=== PATIENT | male | born 1945 | race African-American/Black ===

== ENCOUNTER 2018-06-21 06:06 | Inpatient (IN) | payer MEDICARE ==
[2018-06-19 13:08] LABS: BASOPHILS % 0.5 % (0.0-1.0); EOSINOPHILS # (AUTO) 0.1 (0.0-0.4); EOSINOPHILS % 1.4 % (0.0-6.0); HEMATOCRIT 37.3 % (38.2-49.6); HEMOGLOBIN 12.2 g/dL (14.0-18.0); LYMPHOCYTES # (AUTO) 1.6 (1.0-3.2); LYMPHOCYTES % 28.5 % (18.0-39.1); MEAN CORPUSCULAR HEMOGLOBIN 28.4 pg (28-32); MEAN CORPUSCULAR HGB CONC 32.7 g/dL (31-35); MEAN CORPUSCULAR VOLUME 86.9 fL (81-99); MONOCYTES # (AUTO) 0.3 (0.2-0.8); MONOCYTES % 5.6 % (4.4-11.3); NEUTROPHILS # (AUTO) 3.6 (2.1-6.9); NEUTROPHILS % 63.6 % (38.7-80.0); PLATELET COUNT 203 x10e3/uL (140-360); RED BLOOD COUNT 4.29 x10e6/uL (4.3-5.7); RED CELL DISTRIBUTION WIDTH 12.2 % (11.7-14.4)
--- NOTE | 2018-06-19 13:09 | Diagnostic Imaging Report ---
EXAMINATION: PA and lateral views of the chest. COMPARISON: None CLINICAL HISTORY: Preoperative study, colon mass and ventral hernia DISCUSSION: Lines/tubes: None. Lungs: The lungs are well inflated and clear. There is no evidence of pneumonia or pulmonary edema. Pleura: There is no pleural effusion or pneumothorax. Heart and mediastinum: The cardiomediastinal silhouette is normal. Bones and soft tissues: No acute bony abnormalities. Degenerative changes in the thoracic spine IMPRESSION: No acute cardiopulmonary abnormalities. Signed by: Dr. Indio Ibarra M.D. on 06/19/2018 1:05 PM
[2018-06-19 13:15] LABS: ALANINE AMINOTRANSFERASE 25 IU/L (0-55); ALBUMIN 3.9 g/dL (3.5-5.0); ALBUMIN/GLOBULIN RATIO 1.1 (0.8-2.0); ALKALINE PHOSPHATASE 88 IU/L (40-150); ANION GAP 12.3 mmol/L (8-16); BLOOD UREA NITROGEN 14 mg/dL (7-26); BUN/CREATININE RATIO 13 (6-25); CALCIUM 9.3 mg/dL (8.4-10.2); CARBON DIOXIDE 26 mmol/L (22-29); CHLORIDE 96 mmol/L (98-107); CREATININE, SERUM 1.09 mg/dL (0.72-1.25); EST GLOMERULAR FILTRATION RATE > 60 ML/MIN (60-); GLUCOSE 67 mg/dL (74-118); POTASSIUM 4.3 mmol/L (3.5-5.1); SODIUM 130 mmol/L (136-145)
[~2018-06-21] VITALS: Ht 188 cm; Wt 96.2 kg
[~2018-06-21 06:06] MED LIST: ASPIR 8181 MG PO; ATORVASTATIN CA10 MG PO; BENICAR40 MG PO; DILTIAZEM 24HR120 M1 PO; FLOMAX0.4 MG PO; HYDROCHLOROTHIA25 MG PO; LEVOTHYROXINE112 MCG PO; METFORMIN HCL500 MG PO; METOPROLOL SUCC50 MG PO; NOVOLOG MI100 UNIT/1 SC; ULTRAM50 MG PO
--- OUTSIDE RECORDS SUMMARY | 2018-06-21 06:08 | XMS REPORT ---
Author Organization Unknown Address [address] [place] [id number] Phone [phone] Care Team Providers Care [employer]ished [employer]s Planner Name Role Phone CONNER CRAIN JR, MD 3 [phone] GIAN SORTO MD 111 [phone] Allergies Code Code System Name Reaction Severity Status Onset NKDA Medications Name Status Start Date Stop Date Alcohol Prep Pads Completed 05/09/2017 atorvastatin 10 mg tablet Active Not available BD Insulin Syringe Ultra-Fine 1 mL 30 gauge x 1/2" USE DIRECTED Completed 05/09/2017 BD Ultra-Fine Original Pen Needle 29 gauge x 1/2" Active Not available Blood Glucose Test strips 1 TEST STRIP TWICE DAILY Active Not available diltiazem CD 240 mg capsule,extended release 24 hr Take 1 capsule every day by oral route for 90 days. Completed 07/06/2017 diltiazem ER 240 mg capsule,24 hr,extended release TAKE ONE CAPSULE BY MOUTH EVERY DAY Active Not available FreeStyle Lancets 28 gauge Active Not available glucose 4 gram chewable tablet Take 1 tablet every day by oral route as needed. Active Not available Humalog U-100 Insulin 100 unit/mL subcutaneous solution Completed 01/18/2017 hydrochlorothiazide 25 mg tablet Active Not available lancets 30 gauge Take 1 each twice a day by miscell. route for 90 days. Active Not available lancing device Completed 01/18/2017 levothyroxine 125 mcg tablet Take 1 tablet every day by oral route before meals for 90 days. Active Not available losartan 100 mg tablet Completed 04/18/2017 meloxicam 15 mg tablet Completed 01/18/2017 meloxicam 7.5 mg tablet Completed 01/18/2017 metformin 500 mg tablet Take 1 tablet every day by oral route for 90 days. Active Not available metoprolol succinate ER 50 mg tablet,extended release 24 hr Take 0.5 tablets every day by oral route for 90 days. Active Not available Novolin N NPH U-100 Insulin isophane 100 unit/mL subcutaneous susp Completed 05/03/2017 Novolog Flexpen U-100 Insulin aspart 100 unit/mL subcutaneous Completed 04/18/2017 Novolog Mix 70-30 FlexPen U-100 Insulin 100 unit/mL subcutaneous pen Active Not available omeprazole 40 mg capsule,delayed release Completed 01/18/2017 OneTouch Ultra Control solution Completed 05/09/2017 Sure Comfort Insulin Syringe 1 mL 31 gauge x 5/16" Completed 05/03/2017 tamsulosin 0.4 mg capsule Take 1 capsule every day by oral route for 90 days. 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 01/17/2017 Age-related Nuclear Cataract of Left Eye Active 01/17/2017 Hypothyroidism Active 01/18/2017 Type II Diabetes Mellitus Uncontrolled Unknown 01/18/2017 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 Benign Hypertensive Renal Disease Active 01/18/2017 Chronic Kidney Disease Stage 3 Active 01/18/2017 Nocturia Active 01/18/2017 Chronic Kidney Disease Due to Type 2 Diabetes Mellitus Active 01/18/2017 Lower Urinary Tract Symptoms Due to Benign Prostatic Hypertrophy Active 01/18/2017 Hyperlipidemia Active 06/02/2017 Type 2 Diabetes Mellitus Active 07/06/2017 Procedures Date Name Performed by Intestinal Stricturoplasty Information not available 10/04/2016 US, Duplex, Venous, Lower Extremity [facility] [address] [place] [address] (Work [address]) 10/04/2016 XR, Knee, 3 View [facility] [address] [place] [id number] (Work Place) Lab Results Date Name Specimen Result Interpretation Description Value Range Status Address 05/03/2017 T3, Free, Serum or Plasma Low T3, Free 2.2 pg/mL 2.3-4.2 pg/mL Final [facility]: [address] 05/03/2017 Lipid Panel, Serum Normal Cholesterol, Total 197 mg/dL <200 mg/dL Final [facility]: [address] Normal HDL Cholesterol 63 mg/dL >40 mg/dL Final [facility]: [address] Normal Triglycerides 114 mg/dL <150 mg/dL Final [facility]: [address] [place] High LDL-cholesterol 112 mg/dL (calc) Final [facility]: [address] [place] Normal Chol/hdlc Ratio 3.1 (calc) <5.0 (calc) Final [facility]: [address] [place] High Non HDL Cholesterol 134 mg/dL (calc) <130 mg/dL (calc) Final [facility]: [address] 05/03/2017 CBC W/ Auto Diff Normal White Blood Cell Count 5.9 thousand/uL 3.8-10.8 thousand/uL Final [facility]: [address] [place] Normal Red Blood Cell Count 4.76 million/uL 4.20-5.80 million/uL Final [facility]: [address] [place] Normal Hemoglobin 13.6 g/dL 13.2-17.1 g/dL Final [facility]: [address] [place] Normal Hematocrit 40.8 % 38.5-50.0 % Final [facility]: [address] [place] Normal Mcv 85.7 fL 80.0-100.0 fL Final [facility]: [address] [place] Normal Mch 28.6 pg 27.0-33.0 pg Final [facility]: [address] [place] Normal Mchc 33.3 g/dL 32.0-36.0 g/dL Final [facility]: [address] [place] Normal Rdw 12.9 % 11.0-15.0 % Final [facility]: [address] [place] Normal Platelet Count 235 thousand/uL 140-400 thousand/uL Final [facility]: [address] [place] Normal Mpv 11.0 fL 7.5-12.5 fL Final [facility]: [address] [place] Normal Absolute Neutrophils 2673 cells/uL 5649-3120 cells/uL Final [facility] [address] [place] Absolute Band Neutrophils Preliminary [facility]: [address], Alex Absolute Metamyelocytes Preliminary [facility]: [address], Alex Absolute Myelocytes Preliminary [facility]: [address], Alex Absolute Promyelocytes Preliminary [facility]: [address], Alex Normal Absolute Lymphocytes 2637 cells/uL 850-3900 cells/uL Final [facility]: [address], Alex Normal Absolute Monocytes 419 cells/uL 200-950 cells/uL Final [facility]: [address], Alex Normal Absolute Eosinophils 142 cells/uL 15-500 cells/uL Final [facility]: [address], Alex Normal Absolute Basophils 30 cells/uL 0-200 cells/uL Final [facility]: [address], Alex Absolute Blasts Preliminary [facility]: [address], Alex Absolute Nucleated RBC Preliminary [facility]: [address], Alex Normal Neutrophils 45.3 % Final [facility]: [address], Alex Band Neutrophils Preliminary [facility]: [address], Alex Metamyelocytes Preliminary [facility]: [address], Alex Myelocytes Preliminary [facility]: [address], Alex Promyelocytes Preliminary [facility]: [address], Alex Normal Lymphocytes 44.7 % Final [facility]: [address], Alex Reactive Lymphocytes Preliminary [facility]: [address], Alex Normal Monocytes 7.1 % Final [facility]: [address], Alex Normal Eosinophils 2.4 % Final [facility]: [address], Alex Normal Basophils 0.5 % Final [facility]: [address], Alex Blasts Preliminary [facility]: [address], Alex Nucleated RBC Preliminary [facility]: [address], Alex Comment(s) Preliminary [facility]: [address], Alex 05/03/2017 TSH, Serum or Plasma Normal Tsh 0.63 mIU/L 0.40-4.50 mIU/L Final [facility]: [address] 05/03/2017 T4, Free, Serum Normal T4, Free 1.1 NG/dL 0.8-1.8 NG/dL Final [facility]: [address] 04/18/2017 Glucose, Fingerstick, Blood Blood Glucose: mg/dl [facility], [place] 01/18/2017 TSH, Serum or Plasma Normal Tsh 1.11 mIU/L 0.40-4.50 mIU/L Final [facility]: [address] 01/18/2017 CMP, Serum or Plasma High Glucose 110 mg/dL 65-99 mg/dL Final [facility]: [address] Normal Urea Nitrogen (BUN) 13 mg/dL 7-25 mg/dL Final [facility]: [address] High Creatinine 1.28 mg/dL 0.70-1.18 mg/dL Final [facility]: [address] Low eGFR Non-afr. Niuean 56 mL/min/1.73m2 > or=60 mL/min/1.73m2 Final [facility]: [address] Normal eGFR 65 mL/min/1.73m2 > or=60 mL/min/1.73m2 Final [facility]: [address] Normal BUN/creatinine Ratio 10 (calc) 6-22 (calc) Final [facility]: [address] Normal Sodium 136 mmol/L 135-146 mmol/L Final [facility]: [address] Normal Potassium 3.9 mmol/L 3.5-5.3 mmol/L Final [facility]: [address] Normal Chloride 99 mmol/L 98-110 mmol/L Final [facility]: [address] Normal Carbon Dioxide 29 mmol/L 20-31 mmol/L Final [facility]: [address] Normal Calcium 9.3 mg/dL 8.6-10.3 mg/dL Final [facility]: [address] Normal Protein, Total 7.2 g/dL 6.1-8.1 g/dL Final [facility]: [address] Normal Albumin 4.2 g/dL 3.6-5.1 g/dL Final [facility]: [address] Normal Globulin 3.0 g/dL (calc) 1.9-3.7 g/dL (calc) Final [facility]: [address] Normal Albumin/globulin Ratio 1.4 (calc) 1.0-2.5 (calc) Final [facility]: [address] Normal Bilirubin, Total 0.5 mg/dL 0.2-1.2 mg/dL Final [facility]: [facility] [address] High Alkaline Phosphatase 119 U/L 40-115 U/L Final [facility]: [facility] [address] Normal Ast 25 U/L 10-35 U/L Final [facility]: [address] Normal Alt 19 U/L 9-46 U/L Final [facility]: [address] 01/18/2017 Hepatitis C Virus RNA, Quant, PCR, Serum or Plasma Normal Hepatitis C Antibody non-reactive non-reactive Final [facility]: [facility] [address] Normal Signal to Cut-off 0.08 <1.00 Final [facility]: [facility] Divya nicolas [address] 01/06/2017 HbA1C (Hemoglobin a1C), Blood High Hemoglobin a1C 8.6 % of total HGB <5.7 % of total HGB Final [facility]: [address] EAG (mg/dL) 200 (calc) Final [facility]: [address] EAG (mmol/L) 11.1 (calc) Final [facility]: [facility] [address] 06/14/2016 LDL, Serum Ldl 109 Glucose, Fingerstick, Blood Blood Glucose: mg/dl 158 [facility]: 8951 [facility] 5, [place] Glucose, Fingerstick, Blood Blood Glucose: mg/dl 121 [facility]: [address] [place] [address], [place] Glucose, Fingerstick, Blood Blood Glucose: mg/dl 160 [facility]: [address] [place] [address], [place] Glucose, Fingerstick, Blood Blood Glucose: mg/dl 56 [facility]: [address] [place] [address], [place] Glucose, Fingerstick, Blood Blood Glucose: mg/dl 120 [facility]: [address] [place] [address], [place] Glucose, Fingerstick, Blood Blood Glucose: mg/dl 196 [facility]: [address] [place] [address], [place] Glucose, Fingerstick, Blood Blood Glucose: mg/dl 160 [facility]: [address] [place] [address], [place] Glucose, Fingerstick, Blood Blood Glucose: mg/dl 91 [facility]: [address] [place] [address], [place] Past Encounters 07/06/2017 Type 2 Diabetes Mellitus; Neck Pain; Benign Hypertensive Renal Disease Conner Crain Jr, MD: [address] [address], Ph. 05/09/2017 Type 2 Diabetes Mellitus with Multiple Complications; Benign Hypertensive Renal Disease; Mixed Hyperlipidemia; Type II Diabetes Mellitus Uncontrolled Conner Crain Jr, MD: [address] [address], Ph. 05/03/2017 Benign Hypertensive Renal Disease; Type II Diabetes Mellitus Uncontrolled; Hypothyroidism; Adult Health Examination; Advance Directive Discussed with Patient; Depression Screening; Body Mass Index 25-29 - Overweight; Overweight; Immunization Refused Conner Crain Jr, MD: [address] [address], Ph. 04/22/2017 Benign Hypertensive Renal Disease; Type II Diabetes Mellitus Uncontrolled; Immunization Refused Conner Crain Jr, MD: [address] [address], Ph. 04/18/2017 Type II Diabetes Mellitus Uncontrolled; Hypoglycemic State in Diabetes; Benign Hypertensive Renal Disease; Lower Urinary Tract Symptoms Due to Benign Prostatic Hypertrophy; Hypothyroidism; Depression Screening; Advance Directive Discussed with Patient; Body Mass Index 30+ - Obesity; Obesity Conner Crain Jr, MD: [address], [place] [address], Ph. 01/18/2017 Benign Hypertensive Renal Disease; Peripheral Edema; Peripheral Venous Insufficiency; Type 2 Diabetes Mellitus with Multiple Complications; Chronic Kidney Disease Due to Type 2 Diabetes Mellitus; Chronic Kidney Disease Stage 3; Hypothyroidism; Lower Urinary Tract Symptoms Due to Benign Prostatic Hypertrophy; Hepatitis C Screening; Immunization Conner Crain Jr, MD: [address], [place] [address], Ph. 12/14/2016 Immunization Conner Crain Jr, MD: [address], [place] [address], Ph. Social History Smoking Status Never Smoker Vaccine List Vaccine Type influenza, high dose seasonal 12/14/20160.5 mL pneumococcal conjugate PCV 13 01/18/20170.5 mL pneumococcal polysaccharide PPV23 01/03/20120.5 mL zoster 0.65 mL 0.65 mL Plan of Care Patient Instructions It was good to see you in the office today for your Medicare Annual Wellness Visit. You have been provided some information on healthy nutrition, including a diet rich in fruits and vegetables, minimizing simple carbohydrates, salt, and saturated fats. I want to encourage regular cardiovascular exercise such as walking at least 30 minutes daily, 5 times per week. Please remember to schedule any preventive health measures that we talked about today. You have also been provided education on fall prevention and community- based lifestyle interventions to help reduce health risks and promote healthy living in your [employer] folder. Screening Recommendations 1. Vaccines Pneumococcal: discussed today and information sent with patient in their [facility] health folder Influenza: discussed today and information sent with patient in their [facility] health folder Shingles: discussed today and information sent with patient in their [facility] health folder Tetanus: discussed today and information sent with patient in their [facility] health folder 2. Prostate Screening: discussed today and information sent with patient in their [facility] health folder 3. Colorectal cancer Screening Colonoscopy: discussed today and information sent with patient in their [facility] health folder Fecal Occult Blood: discussed today and information sent with patient in their [facility] health folder 4. Bone Mass Measurement: discussed today 5. Eye Exam Screening: discussed today 6. Cholesterol Screening: discussed today 7. Diabetes Screening: discussed today It was good to see you in the office today for your Medicare Annual Wellness Visit. You have been provided some information on healthy nutrition, including a diet rich in fruits and vegetables, minimizing simple carbohydrates, salt, and saturated fats. I want to encourage regular cardiovascular exercise such as walking at least 30 minutes daily, 5 times per week. Please remember to schedule any preventive health measures that we talked about today. You have also been provided education on fall prevention and community- based lifestyle interventions to help reduce health risks and promote healthy living in your [facility] folder. Screening Recommendations 1. Vaccines Pneumococcal: discussed today and information sent with patient in their [facility] health folder Influenza: discussed today and information sent with patient in their [facility] health folder Shingles: discussed today and information sent with patient in their [facility] health folder Tetanus: discussed today and information sent with patient in their [facility] health folder 2. Prostate Screening: discussed today and information sent with patient in their [facility] health folder 3. Colorectal cancer Screening Colonoscopy: discussed today and information sent with patient in their [facility] health folder Fecal Occult Blood: discussed today and information sent with patient in their [facility] health folder 4. Bone Mass Measurement: discussed today 5. Eye Exam Screening: discussed today 6. Cholesterol Screening: discussed today 7. Diabetes Screening: discussed today It was good to see you in the office today for your Medicare Annual Wellness Visit. You have been provided some information on healthy nutrition, including a diet rich in fruits and vegetables, minimizing simple carbohydrates, salt, and saturated fats. I want to encourage regular cardiovascular exercise such as walking at least 30 minutes daily, 5 times per week. Please remember to schedule any preventive health measures that we talked about today. You have also been provided education on fall prevention and community- based lifestyle interventions to help reduce health risks and promote healthy living in your [facility] folder. Screening Recommendations 1. Vaccines Pneumococcal: discussed today and information sent with patient in their [facility] health folder Influenza: discussed today and information sent with patient in their [facility] health folder Shingles: discussed today and information sent with patient in their [facility] health folder Tetanus: discussed today and information sent with patient in their [facility] health folder 2. Prostate Screening: discussed today and information sent with patient in their [facility] health folder 3. Colorectal cancer Screening Colonoscopy: discussed today and information sent with patient in their [facility] health folder Fecal Occult Blood: discussed today and information sent with patient in their [facility] health folder 4. Bone Mass Measurement: discussed today 5. Eye Exam Screening: discussed today 6. Cholesterol Screening: discussed today 7. Diabetes Screening: discussed today Reminders Provider Appointments None recorded. Lab None recorded. Referral None recorded. Procedures None recorded. Surgeries None recorded. Imaging None recorded. 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
--- OUTSIDE RECORDS SUMMARY | 2018-06-21 06:08 | XMS REPORT | Encounter Summary ---
Author Organization Unknown Address [address] [place] [address] Phone [phone] Care Team Providers Care Micromatic Hone Operator Name Role Phone Dr. Jonathan Jarquin 3 [phone] Jonathan Jarquin Jr, MD 3 [phone] Jose Robbins MD 111 [phone] Reason for Visit Quality BMI DEPRESSION FALL; AWV Annual Wellness Visit Male (VFP); hypertension; diabetes Instructions 1. Adult health examination 2. Body mass index 25-29 - overweight 3. Overweight 4. Advance directive discussed with patient 5. Depression screening 6. At risk for falls preventing falls: care instructions 7. Type 2 diabetes mellitus glucose, fingerstick, blood 8. Benign hypertensive renal disease 9. Chronic kidney disease stage 2 10. Screening for malignant neoplasm of colon colonoscopy referral 11. Immunization Shingrix Adjuvant Component (PF) intramuscular suspension Discussion Note: None recorded. Plan of Care Patient Instructions It was [...] risks and promote healthy living in your Annual Wellness folder. Screening Recommendations 1. Vaccines Pneumococcal: discussed today and information sent with patient in their Annual Wellness health folder Influenza: discussed today and information sent with patient in their Annual Wellness health folder Shingles: Ordered Tetanus: discussed today and information sent with patient in their Annual Wellness health folder 2. Prostate Screening: No screening necessary 3. Colorectal cancer Screening Colonoscopy: Ordered Fecal Occult Blood: discussed today and information sent with patient in their Annual Wellness health folder 4. Bone Mass Measurement: No screening necessary 5. Eye Exam Screening: discussed today 6. Cholesterol Screening: discussed today 7. Diabetes Screening: discussed today Reminders Provider Appointments Est Patient 07/06/2018 8:45AM Jonathan Jarquin Jr, MD Lab Glucose, Fingerstick, Blood 05/04/2018 [facility] ([facility]) Hobby Referral Colonoscopy Referral 05/04/2018 Procedures None recorded. Surgeries None recorded. Imaging None recorded. Medications Name Start Date atorvastatin 10 mg tablet TAKE 1 TABLET BY MOUTH EVERY DAY BD Ultra-Fine Mini Pen Needle 31 gauge x 3/16" USE TWICE A DAY OR DIRECTED. BD Ultra-Fine Original Pen Needle 29 gauge x 1/2" diltiazem CD 240 mg capsule,extended release 24 hr TAKE 1 CAPSULE BY MOUTH EVERY DAY Ecotrin Low Strength 81 mg tablet,enteric coated Take 1 tablet every day by oral route. hydrochlorothiazide 25 mg tablet Take 1 tablet every day by oral route. levothyroxine 125 mcg tablet Take 1 tablet every day by oral route. metformin 500 mg tablet TAKE 2 TABLETS BY MOUTH TWICE A DAY metoprolol succinate ER 50 mg tablet,extended release 24 hr Take 1 tablet every day by oral route for 90 days. mupirocin 2 % topical ointment APPLY A SMALL AMOUNT TO THE AFFECTED AREA BY TOPICAL ROUTE 3 TIMES PER DAY Novolog Mix 70-30 FlexPen U-100 Insulin 100 unit/mL subcutaneous pen INJECT 40 UNIT(S) TWICE A DAY BY SUBCUTANEOUS ROUTE. olmesartan 40 mg tablet TAKE 1 TABLET BY MOUTH EVERY DAY OneTouch Delica Lancets 30 gauge Take 1 each twice a day by miscell. route for 90 days. OneTouch Ultra Blue Test Strip 1 TEST STRIP TWICE DAILY tamsulosin 0.4 mg capsule TAKE 1 CAPSULE BY MOUTH EVERY DAY tramadol 50 mg tablet Medications Administered None recorded. Vitals Height Weight BMI Blood Pressure 6 ft 2 in 231 lbs 29.7 kg/m2 (1) 148/76 mm[Hg] (2) 136/64 mm[Hg] Lab Results Date Name Specimen Result Interpretation Description Value Range Status Address 04/06/2018 Microalbumin:creatinine Ratio, Urine Normal Microalbumin Random Urine see comment ug/mL Final [facility]: [address] [place] [address], [place] Normal Creatinine Random Urine 50.9 mg/dL 20.0-370.0 mg/dL Final [facility]: [address] [facility] [address], [place] Microalbumin/creatinine (Random Urine) Ratio Calculated unable to calculate mcg/mg creat Final [facility]: [address] [address], [place] 04/06/2018 HbA1C (Hemoglobin a1C), Blood High A1C W/eag 7.0 % 1.0-5.7 % Final [facility]: [address] [address], [place] Average Blood Glucose 154 mg/dL Final [facility]: [address] [address], [place] 04/06/2018 Glucose, Fingerstick, Blood Blood Glucose: mg/dl [address] [place] [address] (p) Hobby: [address] Allergies Code Code System Name Reaction Severity Status Onset NKDA Problems Name Status Onset Date Source 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 01/17/2017 Age-related Nuclear Cataract of Left Eye Active 01/17/2017 Hypothyroidism Active 01/18/2017 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 Benign Hypertensive Renal Disease Active 01/18/2017 Nocturia Active 01/18/2017 Chronic Kidney Disease Due to Type 2 Diabetes Mellitus Active 01/18/2017 Lower Urinary Tract Symptoms Due to Benign Prostatic Hypertrophy Active 01/18/2017 Hyperlipidemia Active 06/02/2017 Type 2 Diabetes Mellitus Active 07/06/2017 Diabetic Retinopathy Active 11/14/2017 Chronic Kidney Disease Stage 2 Active 04/06/2018 Procedures Date Name Performed by 08/22/2008 Colonoscopy Information not available Intestinal Stricturoplasty Information not available Vaccine List Vaccine Type influenza, high dose seasonal 12/14/20160.5 mL 01/05/20180.5 mL pneumococcal conjugate PCV 13 01/18/20170.5 mL pneumococcal polysaccharide PPV23 01/03/20120.5 mL zoster 0.65 mL 0.65 mL Social History Smoking Status Never Smoker Past Encounters 05/04/2018 Adult Health Examination; Body Mass Index 25-29 - Overweight; Overweight; Advance Directive Discussed with Patient; Depression Screening; At Risk for Falls; Type 2 Diabetes Mellitus; Benign Hypertensive Renal Disease; Chronic Kidney Disease Stage 2; Screening for Malignant Neoplasm of Colon; Immunization Jonathan Jarquin Jr, MD: [address], [facility] [address], [place] [address], Ph. 04/06/2018 Type 2 Diabetes Mellitus; Type II Diabetes Mellitus Uncontrolled; Noncompliance with Medication Regimen; Benign Hypertensive Renal Disease; Foot Callus; Onychomycosis of Toenails Jonathan Jarquin Jr, MD: [address] [facility], [address], [place] [address], Ph. History of Present Illness Diabetes F/U Reported By: Patient HPI: Labs: last A1C result: 8.3. Context: no side effects from medications. Associated Symptoms: no dizziness, no sweats, no headaches, no confusion, no increased thirst, no increased appetite, no increased urination, no blurred vision, no numbness of feet Notes: Endorses medication compliance.
Hypertension Reported By: Patient HPI: Severity: mild. Onset/Timing: gradual onset. Alleviating Factors: relieved with rest, medication. Self Care: not under emotional stress, blood pressure goal: 130/80. Associated Symptoms: no shortness of breath, no fatigue, no decline in exercise capacity Hyperlipidemia Reported By: Patient HPI: Type of hyperlipidemia: combined, hypercholesterolemia. Duration: chronic. Current Therapy: currently taking: atorvastatin, last LDL level: 63 date: 63. Compliance: compliant. Complications: no coronary artery disease. Risk Factors: diabetes, hypertension Thyroid Reported By: Patient Review of Systems Comprehensive General Adult ROS, Diabetes F/U ROS Reported By: Patient Constitutional: Constitutional: no significant weight gain, no significant weight loss Cardiovascular: Cardiovascular: no chest pain, no shortness of breath when walking Respiratory: Respiratory: no cough, no wheezing, no shortness of breath Endocrine: Endocrine: no fatigue Physical Exam General Adult Exam (male), Neurology Exam, Cardiology Exam, Diabetes, Diabetic Foot Exam Reported By: Patient Constitutional: General Appearance: well-nourished. Ambulation: ambulating normally Psychiatric: Mental Status: normal mood, normal affect, current events, past history. Orientation: to time, to place, to person. Memory: recent memory normal, remote memory normal Head: Head: normocephalic Mental Status: Language: has spontaneous speech Foot Exam:: Right Foot: right foot was examined, nail changes or disorders. Left Foot: left foot was examined, nail changes or disorders
--- OUTSIDE RECORDS SUMMARY | 2018-06-21 06:08 | XMS REPORT ---
Author Author [facility] Address Unknown Phone Unavailable Care Team Providers Care Sdc Teacher Name Role Phone Wellington FERMIN Unavailable Unavailable Problems This patient has no known problems. Allergies, Adverse Reactions, Alerts This patient has no known allergies or adverse reactions. Medications This patient has no known medications. Results Test Description Test Time Test Comments Text Results Atomic Results Result Comments CHEST 2 VIEWS 2018-06-19 13:04:00 [address] [place] [address] Patient Name: KAYLIN BARROSO MR #: [id number] : 1945 Age/Sex: 73/M Req #: [id number] Adm Physician: Ordered by: FAZAL FERMIN MD Report #: [id number] Location: OR Room/Bed: Procedure: [id number] DX/CHEST 2 VIEWS Exam Date: Exam Time: REPORT STATUS: Signed EXAMINATION: PA and lateral views of the chest. COMPARISON: None CLINICAL HISTORY: Preoperative study, colon mass and ventral hernia DISCUSSION: Lines/tubes: None. Lungs: The lungs are well inflated and clear. There is no evidence of pneumonia or pulmonary edema. Pleura: There is no pleural effusion or pneumothorax. Heart and mediastinum: The cardiomediastinal silhouette is normal. Bones and soft tissues: No acute bony abnormalities. Degenerative changes in the thoracic spine IMPRESSION: No acute cardiopulmonary abnormalities. Signed by: Dr. Ok Zavala M.D. on 06/19/2018 1:05 PM Dictated By: OK ZAVALA MD 1309 Transcribed By: TRINA on 06/19/18 1308 COPY TO: FAZAL FERMIN MD
--- NOTE | 2018-06-21 07:10 | NUR ---
SPIRITUAL CARE - Pre-Surgery Assessment: Pt in bed. Pt's and sister at bedside. Pt reported supportive attention from family and friends. Intervention: I provided pastoral presence, hospitality, and sympathetic listening. I acquainted pt with availability of color finisher while hospitalized. Outcome: Pt expressed appreciation for visit. No need for follow up indicated at this time. MILTON Qu[facility]olain Spiritual Care Department O: [phone] Pager: [phone] ([phone] number calling from)
[2018-06-21] MEDS ORDERED: ACETAMINOPHEN 1000 MG/100 ML IV PRN (11:30)
[2018-06-21] MEDS ORDERED: HYDROMORPHONE 1MG/1ML INJ IV PRN (11:30)
[2018-06-21] MEDS ORDERED: HYDROMORPHONE 2MG/ML 2 MG/ML ML ONE (11:47)
[2018-06-21] MEDS ORDERED: FENTANYL CITRATE/PF 100MCG/2 ML INJ ONE ×2 (12:05→14:54)
[2018-06-21] MEDS ORDERED: DEXAMETHASONE SOD PHOS INJ 4 MG/ML VIAL ONE (13:44)
[2018-06-21] MEDS ORDERED: CEFOXITIN SOD 1 GM VIAL ONE (13:44)
[2018-06-21] MEDS ORDERED: ONDANSETRON HCL INJ 2MG/ML 2ML 2 MG/ML VIAL ONE (13:44)
[2018-06-21] MEDS ORDERED: PROPOFOL IV EMULSION 10 MG/ML 20 ML VIAL ONE (13:44)
[2018-06-21] MEDS ORDERED: ROCURONIUM BROMIDE 10 MG/ML 5ML VIAL ONE (13:44)
[2018-06-21] MEDS ORDERED: NEOSTIGMINE 5 MG/5ML SYR ONE (13:44)
[2018-06-21] MEDS ORDERED: ACETAMINOPHEN 1000 MG/100 ML IV ONE (13:44)
[2018-06-21] MEDS ORDERED: SEVOFLURANE INHAL SOLN 250 ML PEN BTL ONE (13:44)
[2018-06-21] MEDS ORDERED: GLYCOPYRROLATE INJ 1MG/ 5 ML SYR ONE (13:44)
[2018-06-21] MEDS ORDERED: LIDOCAINE HCL 2% LOCAL INJ 5 ML SDV VIAL INJ ONE (13:44)
--- NOTE | 2018-06-21 13:54 | Operative Report ---
DATE OF PROCEDURE: 06/21/2018 SURGEON: Troy Hernandez MD PREOPERATIVE DIAGNOSES: Polypoid mass of the ascending colon, rule out malignancy and ventral hernia. POSTOPERATIVE DIAGNOSES: Polypoid mass of the ascending colon, rule out malignancy and ventral hernia. Extensive intraabdominal adhesions. OPERATIONS PERFORMED: Exploratory laparotomy, extensive lysis of adhesion, right hemicolectomy, and repair of ventral hernia. ASSISTANTS: 1. Michele Hernandez MD. 2. SHRUTI Greene. ANESTHESIA: General. COMPLICATIONS: None. ESTIMATED BLOOD LOSS: 50 mL. DESCRIPTION OF PROCEDURE: With the patient lying in bed in the supine position under good general endotracheal anesthesia, the abdomen was prepped with Betadine solution and draped in the usual manner. A midline incision was made, carried down through the subcutaneous tissue. In the mid aspect of the incision, the hernia sac was encountered and this was from the surrounding structures. The hernia sac was then opened and the abdomen was entered. The fascia was then opened both upwards and downwards in order to get full access to the intraabdominal cavity. After this was done, multiple adhesions were encountered. The colon was significantly distended with air, particularly the sigmoid colon, which was rather floppy and actually reached all the way up into the right upper quadrant. There were multiple adhesions from the previous cecal resection that the patient had. The ascending colon was plastered up against the lateral wall as was the terminal ileum and also to the undersurface of the liver. There were also multiple adhesions of the small bowel. All the adhesions of the small bowel were then slowly and carefully taken down and the small bowel freed up. After this was done, the right gutter was then entered and the colon was slowly and carefully from the lateral gutter. The hepatocolic ligament was taken down with the EnSeal device and we were then able to bring up the right colon medially. The area of the lesion was clearly tattooed and the lesion was palpable. It was a rather large polypoid mass, so we decided to go ahead and proceed with a formal right hemicolectomy as this could very easily be malignant on permanent section. The transverse colon was then from the stomach and the lesser sac was entered and the transverse colon was from this area and the transverse colon was then divided at its midpoint with an application of a ESCOBAR-75 stapler. Similarly, the terminal ileum was divided with an application of the ESCOBAR-75 stapler. The mesentery of the colon was then scored and slowly and carefully taken down. The right ureter and the duodenum were identified and and the mesentery was then taken down with the EnSeal device and larger vessels were also ligated with 0-silk. The specimen was sent for pathological examination. The whole area was then thoroughly irrigated. Perfect hemostasis was ascertained. The ileum was then brought up to the mid transverse colon and the anastomosis was performed with another application of the ESCOBAR-75 stapler with the remaining opening closed with a TA-60 stapler. Gloves and instruments were then changed. The anastomosis was then reinforced with interrupted sutures of 3-0 silk. The mesenteric rent was closed with a running suture of 2-0 Vicryl. The abdomen was then copiously irrigated and the bowel was returned to the abdominal cavity in an foreign languages department chair fashion and the wound was then closed in layers. The hernia sac was then dissected all the way around and freed up. The excess of the hernia sac was resected and the fascia was cleared all the way around. The peritoneum was then closed with a running suture of #1 Vicryl and the fascia was reapproximated with running suture of #1 PDS closing the hernia sac as part of the closure without any tension. The umbilicus was then tacked back down to the midline fascia with 3-0 Vicryl. The subcutaneous tissue was approximated with 2-0 chromic and the skin was closed with clips. A dressing was applied. The sponge, lap, and needle count was correct. The patient tolerated the procedure well and returned to the recovery room in stable condition. MD SWATHI Holguin/BELKYS /[id number]
--- NOTE | 2018-06-21 14:30 | NUR ---
Received patient from PACU. Patient A/O X3, even respirations 2LNC. NGT to right nare set to LCS. Bey in place with clear yellow urine. ABD diner in place, ABD dressing dry/intact. Right wrist 20 gauge IV with NS @ 100cc/hr. Bowel sounds active, skin intact, no edema. Call light in reach, will continue to monitor.
[2018-06-21 14:53] VITALS: BP 167/71
[2018-06-21] MEDS ORDERED: MIDAZOLAM HCL 2 MG/2 ML VIAL ONE (14:54)
[2018-06-21 14:57] VITALS: BP 167/71
[2018-06-21] MEDS: SODIUM CHLORIDE 0.9% 1000ML 1,000 ML IV SCH ×2 (14:59→21:30)
[2018-06-21] MEDS: SODIUM CHLORIDE 0.9% 250ML IRRIG IR SCH ×3 (15:30→23:02)
[2018-06-21] MEDS: PANTOPRAZOLE 40 MG 10ML VIAL IV SCH (16:08)
[2018-06-21] MEDS: CEFOXITIN 1GM/ D5W 50ML 50 ML IV SCH ×2 (16:08→21:30)
[2018-06-21 16:29] VITALS: BP 167/71
[2018-06-21] MEDS: HYDROMORPHONE 2MG/ML 2 MG/ML ML IV PRN (17:30)
[2018-06-21] MEDS: INSULIN REGULAR, HUMAN 100 UNIT/1 ML 3ML VIAL SQ SCH ×2 (17:32→23:13)
--- NOTE | 2018-06-21 17:34 | NUR ---
Patient complaint of abdominal pain 11/04. Dilaudid given as ordered.
[2018-06-21] MEDS: NITROGLYCERIN 2% OINT 1 GM PKT TOP SCH ×2 (17:43→23:13)
--- NOTE | 2018-06-21 19:00 | NUR ---
RECEIVED REPORT FROM LYNDSEY SHAIKH FOR CONTINUATION OF CARE
[2018-06-21 19:45] VITALS: BP 167/71
[2018-06-21 20:00] VITALS: BP 144/65
[2018-06-22] VITALS (8 sets, daily range): BP systolic 137–159; BP diastolic 62–78
[2018-06-22] MEDS: SODIUM CHLORIDE 0.9% 250ML IRRIG IR SCH ×6 (03:47→21:53)
[2018-06-22 05:58] LABS: BASOPHILS % 0.1 % (0.0-1.0); HEMATOCRIT 31.8 % (38.2-49.6); HEMOGLOBIN 10.6 g/dL (14.0-18.0); LYMPHOCYTES # (AUTO) 1.1 (1.0-3.2); LYMPHOCYTES % 6.8 % (18.0-39.1); MEAN CORPUSCULAR HEMOGLOBIN 28.6 pg (28-32); MEAN CORPUSCULAR HGB CONC 33.3 g/dL (31-35); MEAN CORPUSCULAR VOLUME 85.9 fL (81-99); MONOCYTES # (AUTO) 1.4 (0.2-0.8); MONOCYTES % 8.5 % (4.4-11.3); NEUTROPHILS # (AUTO) 14.1 (2.1-6.9); NEUTROPHILS % 83.9 % (38.7-80.0); PLATELET COUNT 195 x10e3/uL (140-360); RED CELL DISTRIBUTION WIDTH 12.2 % (11.7-14.4)
[2018-06-22 06:15] LABS: ANION GAP 10.8 mmol/L (8-16); BLOOD UREA NITROGEN 18 mg/dL (7-26); BUN/CREATININE RATIO 16 (6-25); CALCIUM 7.9 mg/dL (8.4-10.2); CARBON DIOXIDE 23 mmol/L (22-29); CHLORIDE 100 mmol/L (98-107); CREATININE, SERUM 1.15 mg/dL (0.72-1.25); EST GLOMERULAR FILTRATION RATE > 60 ML/MIN (60-); GLUCOSE 207 mg/dL (74-118); POTASSIUM 4.8 mmol/L (3.5-5.1); SODIUM 129 mmol/L (136-145)
[2018-06-22] MEDS: NITROGLYCERIN 2% OINT 1 GM PKT TOP SCH ×2 (06:26→12:42)
[2018-06-22] MEDS: INSULIN REGULAR, HUMAN 100 UNIT/1 ML 3ML VIAL SQ SCH ×4 (06:30→23:59)
--- NOTE | 2018-06-22 07:15 | NUR ---
Received patient and walking rounds complete. Patient resting at this time, no signs of distress. Call light in reach, will continue to monitor.
[2018-06-22] MEDS: SODIUM CHLORIDE 0.9% 1000ML 1,000 ML IV SCH ×2 (07:23→16:23)
[2018-06-22] MEDS: METOPROLOL SUCCINATE 50 MG TAB XL PO SCH (09:00)
[2018-06-22] MEDS: HYDROMORPHONE 2MG/ML 2 MG/ML ML IV PRN (10:58)
--- NOTE | 2018-06-22 13:30 | NUR ---
Ambulated with patient in hallway. Steady gait, no signs of distress. Assisted patient back in bed. Call light in reach.
[2018-06-22] MEDS: PANTOPRAZOLE 40 MG 10ML VIAL IV SCH (16:23)
[2018-06-22] MEDS: ACETAMINOPHEN 1000 MG/100 ML IV PRN (17:23)
[2018-06-23] VITALS (9 sets, daily range): BP systolic 138–178; BP diastolic 65–79
[2018-06-23] MEDS: HYDROMORPHONE 2MG/ML 2 MG/ML ML IV PRN ×4 (00:38→20:40)
[2018-06-23] MEDS: SODIUM CHLORIDE 0.9% 250ML IRRIG IR SCH ×3 (02:05→12:08)
[2018-06-23] MEDS: SODIUM CHLORIDE 0.9% 1000ML 1,000 ML IV SCH ×3 (02:05→21:57)
[2018-06-23] MEDS: INSULIN REGULAR, HUMAN 100 UNIT/1 ML 3ML VIAL SQ SCH ×3 (06:09→17:31)
[2018-06-23 06:20] LABS: BASOPHILS % 0.2 % (0.0-1.0); EOSINOPHILS # (AUTO) 0.1 (0.0-0.4); HEMATOCRIT 33.7 % (38.2-49.6); LYMPHOCYTES % 17.7 % (18.0-39.1); MEAN CORPUSCULAR HEMOGLOBIN 28.3 pg (28-32); MEAN CORPUSCULAR HGB CONC 32.6 g/dL (31-35); MEAN CORPUSCULAR VOLUME 86.6 fL (81-99); MONOCYTES # (AUTO) 1.1 (0.2-0.8); MONOCYTES % 9.5 % (4.4-11.3); NEUTROPHILS % 71.2 % (38.7-80.0); PLATELET COUNT 192 x10e3/uL (140-360); RED BLOOD COUNT 3.89 x10e6/uL (4.3-5.7); RED CELL DISTRIBUTION WIDTH 12.1 % (11.7-14.4)
[2018-06-23 06:42] LABS: ANION GAP 9.2 mmol/L (8-16); BLOOD UREA NITROGEN 13 mg/dL (7-26); BUN/CREATININE RATIO 13 (6-25); CALCIUM 7.8 mg/dL (8.4-10.2); CARBON DIOXIDE 24 mmol/L (22-29); CHLORIDE 102 mmol/L (98-107); CREATININE, SERUM 1.04 mg/dL (0.72-1.25); EST GLOMERULAR FILTRATION RATE > 60 ML/MIN (60-); GLUCOSE 221 mg/dL (74-118); POTASSIUM 4.2 mmol/L (3.5-5.1); SODIUM 131 mmol/L (136-145)
[2018-06-23] MEDS: METOPROLOL SUCCINATE 50 MG TAB XL PO SCH ×2 (07:48→13:17)
--- NOTE | 2018-06-23 08:05 | NUR ---
MILLAN D/C AT THIS TIME. INSTRUCTED TO USE URINAL WITH FIRST VOID. PT VERBALIZED UNDERSTANDING. ASSISTED TO SIT IN CHAIR AT THIS TIME. CALL LIGHT WITHIN REACH. INSTRUCTED TO CALL FOR ASSISTANCE.
--- NOTE | 2018-06-23 10:28 | NUR ---
PT AMBULATING IN HALLWAY AT THIS TIME.
[2018-06-23] MEDS ORDERED: BISACODYL 10 MG SUPP PR ONE (10:45)
--- NOTE | 2018-06-23 13:09 | NUR ---
RECEIVED CALL BACK FROM DR. Kyler FERMIN NOTIFIED REGARDING HTN. BP 168/74 STATES OK TO GIVE PO METOPROLOL AND BENICAR WITH SIP OF WATER.
[2018-06-23] MEDS ORDERED: NON-FORMULARY MEDICATION (Olmesartan Medoxomil (Benicar) 40 MG) PO SCH (13:15)
[2018-06-23] MEDS: OLMESARTAN 20 MG TAB PO SCH (13:35)
--- NOTE | 2018-06-23 13:39 | NUR ---
PT AMBULATING IN HALLWAY WITH SPOUSE AT THIS TIME.
[2018-06-23] MEDS: ACETAMINOPHEN 1000 MG/100 ML IV PRN (13:46)
--- NOTE | 2018-06-23 14:31 | NUR ---
CASE MANAGEMENT INITIAL ASSESSMENT Finger Cobbler to bedside to discuss plan of care with patient/family. CM/SW role and care transitions discussed. Anticipated discharge plan discussed along with duration of care. CM discussed patients right to make decisions in care. CM work hours given. Patient lives: PATIENT LIVES IN [address] [facility] IN [facility] WITH Admit/Transfer: OR Hospital/ER visits since last admit: NONE POA/Emergency contact: ADRIANA SANTIAGO [phone] Current/Previous Home Health: NOT AT THIS TIME PCP/Follow-up Care: DR. CONNER CRAIN Current/Previous DME: SHERIE WISE (OLD) Medications (referring to index hospitalization or the first time you were in the hospital) a. Were changes made in your medications when you were in the hospital on [date of index hospitalization]? Yes No Not sure Explain: Note: If no or not sure, please skip to question d b. Did you understand the changes? Yes No Explain: c. Were you able to obtain your new medications right away? Yes Non/a SNF only Explain: d. Were you able to take your medications like the doctor wanted you to? Yes No Explain: e. Did the hospital give you an accurate, easy to understand list of medications when you left? Yes No n/a SNF only Explain: Scale of 1-10 how comfortable does patient feel with disease management in outpatient setting: Other Services: Employment Status: RETIRED Areas of Concerns: POST OP CARE Referral Needs: NONE AT THIS TIME Education Needs: POST OP CARE IMM/SWAN given and signed (if applicable): IMM Goal for discharge: DISCHARGE HOME WITH NO NEEDS CM left business card at the bedside with contact information. Name and number was also written on the patients whiteboard. Patient verbalized understanding of discussion. CM will follow-up with ongoing discharge and transition of care needs.
--- NOTE | 2018-06-23 14:57 | NUR ---
NGT D/C AT THIS TIME PER ORDERS. PT TOLERATED WELL.
--- NOTE | 2018-06-23 15:00 | NUR ---
DR. Kyler FERMIN MAKING ROUNDS PT NOTIFIED HE HAS NOT VOIDED. DR. Kyler FERMIN LET PT KNOW IT MAY TAKE SOME TIME BEFORE BEING ABLE TO VOID AFTER HAVING A CATHETER IN PLACE IF PT DOES NOT VOID HE WILL NEED MILLAN CATHETER TO BE REPLACED. PT VERBALIZED UNDERSTANDING. WILL CONTINUE TO MONITOR FOR VOIDING.
[2018-06-23] MEDS: PANTOPRAZOLE 40 MG 10ML VIAL IV SCH (15:10)
--- NOTE | 2018-06-23 16:26 | NUR ---
PT HAS NOT VOIDED BLADDER SCAN RESULT ">[phone]" PAGED DR. Sincere FERMIN AT THIS TIME. AWAITING CALL BACK.
--- NOTE | 2018-06-23 17:02 | NUR ---
RECEIVED ORDERS PER DR. Kyler FERMIN TO RE-INSERT MILLAN CATHETER. 16F 10 CC BALLOON CATHETER PLACED. 390 ML YELLOW URINE OUTPUT AFTER PLACING MILLAN.
--- NOTE | 2018-06-23 19:21 | NUR ---
received report, patient in bed sleeping without any signs or symptoms of distress observed. breathing even and unlabored. lane intact, with urine output noted. bed locked and in lowest position, call light and belongings within easy reach. will continue to monitor the patient closely.
[2018-06-23] MEDS: BISACODYL 10 MG SUPP PR SCH (20:16)
--- NOTE | 2018-06-23 21:45 | NUR ---
patient ambulated hallway with standby assist, tolerating well. assisted back to bed. bed locked and in lowest position, call light and belongings within easy reach.
[2018-06-24] VITALS (7 sets, daily range): BP systolic 120–168; BP diastolic 58–75
--- NOTE | 2018-06-24 00:04 | NUR ---
patient ambulated hallway, and returned to bed. no needs voiced. instructed to use call light for any needs or assistance, patient verbalized understanding. lane cath to gravity, output noted.
[2018-06-24] MEDS: INSULIN REGULAR, HUMAN 100 UNIT/1 ML 3ML VIAL SQ SCH ×4 (00:13→18:32)
[2018-06-24] MEDS: HYDROMORPHONE 2MG/ML 2 MG/ML ML IV PRN (05:40)
[2018-06-24] MEDS: LEVOTHYROXINE SODIUM 125 MCG TAB PO SCH (05:40)
[2018-06-24 07:06] LABS: BASOPHILS % 0.3 % (0.0-1.0); EOSINOPHILS # (AUTO) 0.1 (0.0-0.4); HEMATOCRIT 37.5 % (38.2-49.6); HEMOGLOBIN 12.1 g/dL (14.0-18.0); LYMPHOCYTES # (AUTO) 2.5 (1.0-3.2); LYMPHOCYTES % 21.3 % (18.0-39.1); MEAN CORPUSCULAR HEMOGLOBIN 28.5 pg (28-32); MEAN CORPUSCULAR HGB CONC 32.3 g/dL (31-35); MEAN CORPUSCULAR VOLUME 88.4 fL (81-99); MONOCYTES # (AUTO) 0.9 (0.2-0.8); MONOCYTES % 7.6 % (4.4-11.3); NEUTROPHILS # (AUTO) 8.3 (2.1-6.9); NEUTROPHILS % 69.5 % (38.7-80.0); PLATELET COUNT 223 x10e3/uL (140-360); RED BLOOD COUNT 4.24 x10e6/uL (4.3-5.7); RED CELL DISTRIBUTION WIDTH 12.2 % (11.7-14.4)
[2018-06-24 07:25] LABS: ANION GAP 12.7 mmol/L (8-16); BLOOD UREA NITROGEN 18 mg/dL (7-26); BUN/CREATININE RATIO 14 (6-25); CALCIUM 8.4 mg/dL (8.4-10.2); CARBON DIOXIDE 24 mmol/L (22-29); CHLORIDE 101 mmol/L (98-107); CREATININE, SERUM 1.25 mg/dL (0.72-1.25); EST GLOMERULAR FILTRATION RATE > 60 ML/MIN (60-); GLUCOSE 265 mg/dL (74-118); POTASSIUM 4.7 mmol/L (3.5-5.1); SODIUM 133 mmol/L (136-145)
[2018-06-24] MEDS: SODIUM CHLORIDE 0.9% 1000ML 1,000 ML IV SCH (08:03)
[2018-06-24] MEDS: DILTIAZEM HCL ER 120 MG CAP PO SCH (08:59)
[2018-06-24] MEDS: BISACODYL 10 MG SUPP PR SCH (08:59)
[2018-06-24] MEDS: OLMESARTAN 20 MG TAB PO SCH (08:59)
[2018-06-24] MEDS: METOPROLOL SUCCINATE 50 MG TAB XL PO SCH (08:59)
[2018-06-24] MEDS: HYDROCHLOROTHIAZIDE 25 MG TAB PO SCH (08:59)
[2018-06-24] MEDS: TAMSULOSIN HCL 0.4 MG CAP PO SCH (08:59)
[2018-06-24] MEDS ORDERED: NON-FORMULARY MEDICATION (Olmesartan Medoxomil (Benicar) 40 MG) PO SCH (09:00)
[2018-06-24] MEDS ORDERED: LEVOTHYROXINE SODIUM 112 MCG TAB PO SCH (09:00)
--- NOTE | 2018-06-24 09:00 | NUR ---
DRESSING TO ABD REMOVED PER DR. Kyler FERMIN ORDERS. VERTICAL MIDLINE INCISION NOTED WITH BELLE CLEAN, DRY, AND INTACT. NO BLEEDING, ERYTHEMA, OR DRAINAGE NOTED. APPLIED ABD PAD OVER INCISION AND REAPPLIED ABD BINDER. AM MEDS GIVEN WITH SIP OF WATER. DULCOLAX SUPPOSITORY ADMINISTERED. INSTRUCTED PT TO REMAIN IN BED ON LEFT SIDE FOR ABOUT 30 MIN AND WILL ASSIST TO GET OUT OF BED AFTER. PT VERBALIZED UNDERSTANDING. PT STATES HE HAS BM LAST NIGHT. MILLAN CATHETER IN PLACE DRAINING CLEAR YELLOW URINE.
--- NOTE | 2018-06-24 09:40 | NUR ---
PT AMBULATING IN HALLWAY AT THIS TIME. DR. EDWARDS MAKING ROUNDS RECEIVED ORDERS FOR CLEAR LIQUID DIET AND IVF DECREASED TO 60ML/HR.
--- NOTE | 2018-06-24 10:55 | NUR ---
PT C/O NAUSEA. PAGED DR. Sina FERMIN FOR ORDERS AWAITING CALL BACK.
--- NOTE | 2018-06-24 10:59 | NUR ---
RECEIVED CALL BACK FROM OR NURSE DR. Sina FERMIN IS SCRUBBED IN FOR PROCEDURE AT THE MOMENT HE WILL RETURN CALL AFTER SURGERY. NOTIFIED PT AWAITING CALL BACK FROM DR. Sina FERMIN PT VERBALIZED UNDERSTANDING. APPEARS COMFORTABLE SITTING UP ON EDGE OF BED SPOUSE AT BEDSIDE.
--- NOTE | 2018-06-24 11:23 | NUR ---
PT REQUESTING TO SHOWER. ABD AND IV COVERED AND ASSISTED TO SHOWER BY SANITATION TRUCK CLEANER. SPOUSE ASSISTING PT WITH SHOWER.
--- NOTE | 2018-06-24 11:50 | NUR ---
PT DONE WITH SHOWER. ABD AND IV UNCOVERED. INCISION REMAINS CLEAN, DRY, AND INTACT. NEW ABD PAD PLACED OVER INCISION ABD PAD REAPPLIED. IVF CONTINUED TO RIGHT WRIST IV INFUSION WITHOUT DIFFICULTY.
--- NOTE | 2018-06-24 12:11 | NUR ---
PT RECEIVED FIRST CLEAR LIQUID DIET TRAY INSTRUCTED TO EAT SLOWLY AND WAIT A COUPLE MIN BETWEEN BITES TO AVOID N/V. PT VERBALIZED UNDERSTANDING. INSTRUCTED TO USE CALL LIGHT FOR ASSISTANCE. SPOUSE AT BEDSIDE.
--- NOTE | 2018-06-24 12:46 | NUR ---
PT TOLERATING CLEAR LIQUIDS NO COMPLAINTS AT THIS TIME.
--- NOTE | 2018-06-24 13:01 | NUR ---
DR. John FERMIN RETURNED TO FLOOR RECEIVED ORDER FOR ZOFRAN AND NORCO. REASSESSED NEED FOR NAUSEA MEDICATION. PT CURRENTLY SLEEPING. SPOUSE AT BEDSIDE STATES PT HAS HAD NO COMPLAINTS AFTER CLEAR LIQUID MEAL. DID NOT WAKE PT AT THIS TIME. WILL CONTINUE TO MONITOR.
[2018-06-24] MEDS: PANTOPRAZOLE 40 MG 10ML VIAL IV SCH (14:04)
--- NOTE | 2018-06-24 15:35 | NUR ---
PT AMBULATING IN HALLWAY AT THIS TIME.
[2018-06-24] MEDS: HYDROCODONE/APAP 7.5MG-325MG 1 EA TAB PO PRN (17:42)
--- NOTE | 2018-06-24 19:14 | NUR ---
received patient resting in bed, aoax3, stable condition. no needs voiced at this time. bed locked and in lowest position, call light within easy reach. instructed to call for assistance as needed, patient verbalized understanding. will continue to monitor the patient.
--- NOTE | 2018-06-24 20:49 | NUR ---
patient ambulating in hallway at this time with walker, steady gait.
[2018-06-25] VITALS (7 sets, daily range): BP systolic 133–147; BP diastolic 60–70
[2018-06-25] MEDS: INSULIN REGULAR, HUMAN 100 UNIT/1 ML 3ML VIAL SQ SCH ×4 (01:22→18:15)
[2018-06-25] MEDS: SODIUM CHLORIDE 0.9% 1000ML 1,000 ML IV SCH (01:59)
[2018-06-25] MEDS: LEVOTHYROXINE SODIUM 125 MCG TAB PO SCH (06:11)
[2018-06-25] MEDS ORDERED: INSULIN REGULAR, HUMAN 100 UNIT/1 ML 3ML VIAL SQ SCH ×2 (07:30→12:00)
[2018-06-25] MEDS: TAMSULOSIN HCL 0.4 MG CAP PO SCH (08:32)
[2018-06-25] MEDS: DILTIAZEM HCL ER 120 MG CAP PO SCH (08:32)
[2018-06-25] MEDS: HYDROCHLOROTHIAZIDE 25 MG TAB PO SCH (08:32)
[2018-06-25] MEDS: METOPROLOL SUCCINATE 50 MG TAB XL PO SCH (08:32)
[2018-06-25] MEDS: OLMESARTAN 20 MG TAB PO SCH (08:32)
--- NOTE | 2018-06-25 08:32 | NUR ---
MINIMAL DRAINAGE NOTED TO ABD PAD OVER ABD INCISION. BELLE TO ABD INCISION CLEAN DRY INTACT. NO REDNESS NOTED. NEW ABD PAD PLACED AND ABD BINDER REAPPLIED. ASSISTED PT TO SIT IN CHAIR. MILLAN CATHETER REMAINS IN PLACE DRAINING YELLOW URINE. LEFT PT SITTING IN CHAIR HAVING CLEAR LIQUID BREAKFAST. CALL LIGHT WITHIN REACH. INSTRUCTED TO CALL FOR ASSISTANCE. WILL CONTINUE TO MONITOR.
--- NOTE | 2018-06-25 09:33 | NUR ---
PT AMBULATING IN HALLWAY AT THIS TIME.
[2018-06-25] MEDS: HYDROCODONE/APAP 7.5MG-325MG 1 EA TAB PO PRN ×2 (10:18→20:15)
[2018-06-25] MEDS ORDERED: DEXTROSE 50% SYRINGE 50 ML IV PRN (12:00)
[2018-06-25] MEDS: PANTOPRAZOLE 40 MG 10ML VIAL IV SCH (14:23)
--- NOTE | 2018-06-25 15:25 | NUR ---
PT AMBULATING IN HALLWAY AT THIS TIME WITH SPOUSE.
--- NOTE | 2018-06-25 15:46 | NUR ---
PT RETURNED BACK TO BED. BILAT SCD'S APPLIED. CALL LIGHT WITHIN REACH. INSTRUCTED TO CALL FOR ASSISTANCE. SPOUSE AT BEDSIDE.
--- NOTE | 2018-06-25 22:30 | NUR ---
Patient was up to ambulate in voss, reported 3 laps to other nurses station with walker, tolerated well. Assisted back to bed, applied scd, and connected IV.
[2018-06-26] VITALS (8 sets, daily range): BP systolic 112–165; BP diastolic 54–77
[2018-06-26] MEDS: SODIUM CHLORIDE 0.9% 1000ML 1,000 ML IV SCH ×2 (00:08→21:50)
[2018-06-26] MEDS: INSULIN REGULAR, HUMAN 100 UNIT/1 ML 3ML VIAL SQ SCH ×5 (00:13→23:16)
[2018-06-26] MEDS: HYDROCODONE/APAP 7.5MG-325MG 1 EA TAB PO PRN (03:51)
[2018-06-26] MEDS: ONDANSETRON HCL INJ 2MG/ML 2ML 2 MG/ML VIAL IV PRN ×2 (05:15→13:25)
--- NOTE | 2018-06-26 05:15 | NUR ---
Bey removed, catheter intact, 400 cc in bag. Tolerated well. Education provided to notify staff/ nurse when able to void and to void in urinal for accurate measurement. Will continue to monitor.
--- NOTE | 2018-06-26 05:30 | NUR ---
Patient up ambulating in voss with walker, tolerating well. Will continue to monitor.
[2018-06-26] MEDS: LEVOTHYROXINE SODIUM 125 MCG TAB PO SCH (05:54)
[2018-06-26] MEDS: DILTIAZEM HCL ER 120 MG CAP PO SCH (08:56)
[2018-06-26] MEDS: TAMSULOSIN HCL 0.4 MG CAP PO SCH (08:56)
[2018-06-26] MEDS: METOPROLOL SUCCINATE 50 MG TAB XL PO SCH (08:56)
[2018-06-26] MEDS: HYDROCHLOROTHIAZIDE 25 MG TAB PO SCH (08:56)
--- NOTE | 2018-06-26 10:26 | NUR ---
ATTEMPTED X 2 TO HAVE PT SIGN IMM PT AMBULATING IN HALLS FIRST TIME AND IN THE SHOWER THE SECOND TIME GAVE IMM TO NURSE RAYNE AND ASKED HER TO EXPLAIN AND GET PT TO SIGN AND PLACE IN CHART COPY GIVEN TO RAYNE TO GIVE TO PT ENCOURAGED RAYNE TO CALL ME IF ANY QUESTIONS/CONCERNS FROM HER OR PT
--- NOTE | 2018-06-26 11:04 | NUR ---
IMM EXPLAINED, SIGNED BY PT AND ON CHART COPY TO PT IN CARE TRANSITION FOLDER
--- NOTE | 2018-06-26 11:05 | NUR ---
PT BEGAN VOMITING UNABLE TO TOLERATE PO BACK TO NPO STATUS NG TUBE INSERTED
--- NOTE | 2018-06-26 11:36 | NUR ---
MILLAN DC AT 5 15 PT HAS NOT VOIDED STATES FEELING PRESSURE UPON PALPATION TO BLADDER. BLADDER SCAN DONE. OVER 373CC OF URINE REPORTED ON SCAN. PT WILL TRY TO VOID AGAIN IF NO VOID WILL CONTACT
--- NOTE | 2018-06-26 12:11 | NUR ---
GALINA FERMIN REGARDING PT UNABLE TO VOID AFTER MILLAN REMOVAL AWAITING FOR CALL BACK
[2018-06-26] MEDS: OLMESARTAN 20 MG TAB PO SCH (12:44)
--- NOTE | 2018-06-26 14:02 | NUR ---
PAGING MASOUD AGAIN FOR ORDERS ON NO OUTPUT SINCE MILLAN REMOVAL AT 0515 BLADDER SCANNER DONE . NOTED MORE THAN 465CC ON BLADDER AT THIS TIME
--- NOTE | 2018-06-26 15:51 | NUR ---
16F MILLAN PLACED FOR URINARY RETENTION. 100CC OF CLEAR YELLOW URINE NOTED UPON PLACEMENT
[2018-06-26] MEDS: PANTOPRAZOLE 40 MG 10ML VIAL IV SCH (17:44)
--- NOTE | 2018-06-26 17:45 | NUR ---
PT NOW NPO DUE TO VOMITING EPISODES AND DISTENDED ABD . MD MEREDITH ORDERED TO HOLD INSULIN ADMINISTRATION AT 1800 AND REASSESS NEXT SUGAR Q6 AFTER 1800 AND IF COVERAGE IS REQUIRED THEN ADMINISTER INSULIN. PT AWARE OF PLAN OF CARE AND NEW MEDICATIONS THAT ARE NOW ON CHART FOR NAUSEA MANAGEMENT PT VERBALIZES UNDERSTANDING
[2018-06-26] MEDS: PROMETHAZINE 12.5MG/ NACL 0.9% 12.5 MG/50 ML BAG IV PRN (18:07)
[2018-06-26] MEDS: METOCLOPRAMIDE HCL 10 MG/2ML VIAL IV PRN (18:13)
[2018-06-26] MEDS: BISACODYL 10 MG SUPP PR SCH (21:11)
[2018-06-26] MEDS ORDERED: ACETAMINOPHEN 650 MG SUPP PR ONE (23:30)
[2018-06-27] VITALS (7 sets, daily range): BP systolic 134–171; BP diastolic 65–77
[2018-06-27] MEDS: LEVOTHYROXINE SODIUM 125 MCG TAB PO SCH (05:55)
[2018-06-27] MEDS: INSULIN REGULAR, HUMAN 100 UNIT/1 ML 3ML VIAL SQ SCH ×3 (06:04→18:08)
[2018-06-27] MEDS: METOCLOPRAMIDE HCL 10 MG/2ML VIAL IV PRN ×2 (08:29→15:41)
[2018-06-27] MEDS: PROMETHAZINE 12.5MG/ NACL 0.9% 12.5 MG/50 ML BAG IV PRN ×2 (08:29→15:41)
--- NOTE | 2018-06-27 08:37 | NUR ---
SPOKE WITH MD Kyler MEREDITH REGARDING INCREASED DISTENTION ON ABD AND CONSTANT N+V NEW ORDERS RECEIVED FOR NG TUBE PLACEMENT , ABX, AND POSSIBLE CT SCAN ORDERS RECEIVED
[2018-06-27] MEDS: METOPROLOL SUCCINATE 50 MG TAB XL PO SCH ×2 (09:00→20:22)
[2018-06-27] MEDS: OLMESARTAN 20 MG TAB PO SCH ×2 (09:00→20:22)
[2018-06-27] MEDS: HYDROCHLOROTHIAZIDE 25 MG TAB PO SCH (09:00)
[2018-06-27] MEDS: TAMSULOSIN HCL 0.4 MG CAP PO SCH (09:00)
[2018-06-27] MEDS: DILTIAZEM HCL ER 120 MG CAP PO SCH ×2 (09:00→21:05)
[2018-06-27 09:02] LABS: BASOPHILS % 0.4 % (0.0-1.0); EOSINOPHILS # (AUTO) 0.1 (0.0-0.4); EOSINOPHILS % 1.5 % (0.0-6.0); HEMATOCRIT 31.8 % (38.2-49.6); HEMOGLOBIN 10.8 g/dL (14.0-18.0); LYMPHOCYTES # (AUTO) 0.7 (1.0-3.2); LYMPHOCYTES % 12.7 % (18.0-39.1); MEAN CORPUSCULAR VOLUME 85.5 fL (81-99); MONOCYTES # (AUTO) 0.8 (0.2-0.8); MONOCYTES % 14.2 % (4.4-11.3); NEUTROPHILS # (AUTO) 3.8 (2.1-6.9); NEUTROPHILS % 70.8 % (38.7-80.0); PLATELET COUNT 193 x10e3/uL (140-360); RED BLOOD COUNT 3.72 x10e6/uL (4.3-5.7); RED CELL DISTRIBUTION WIDTH 12.1 % (11.7-14.4)
[2018-06-27 09:25] LABS: ALANINE AMINOTRANSFERASE 23 IU/L (0-55); ALBUMIN 2.8 g/dL (3.5-5.0); ALBUMIN/GLOBULIN RATIO 0.8 (0.8-2.0); ALKALINE PHOSPHATASE 71 IU/L (40-150); ANION GAP 11.2 mmol/L (8-16); BLOOD UREA NITROGEN 19 mg/dL (7-26); BUN/CREATININE RATIO 16 (6-25); CALCIUM 8.2 mg/dL (8.4-10.2); CARBON DIOXIDE 21 mmol/L (22-29); CHLORIDE 96 mmol/L (98-107); CREATININE, SERUM 1.18 mg/dL (0.72-1.25); EST GLOMERULAR FILTRATION RATE > 60 ML/MIN (60-); GLUCOSE 292 mg/dL (74-118); POTASSIUM 4.2 mmol/L (3.5-5.1); SODIUM 124 mmol/L (136-145)
--- NOTE | 2018-06-27 09:30 | NUR ---
NG PLACED TO THE RIGHT NARE . 1000CC NOTED OF GASTRIC OUT (GREEN/BROWN WITH FOUL ODOR) NEW CANISTER PLACED , OUTPUT REMAINS DRIPPING TO LOW CON SUCTION AT THIS TIME PT STATES RELIEVE OF N/V
[2018-06-27] MEDS: PIPER-TAZ 3.375 GM 50 ML IV SCH ×3 (09:35→21:32)
[2018-06-27] MEDS: SODIUM CHLORIDE 0.9% 1000ML 1,000 ML IV SCH ×2 (09:36→23:28)
--- NOTE | 2018-06-27 10:15 | NUR ---
PAGED MASOUD REGARDING HIGH OUTPUT AND ORDERS FOR POSSIBLE CT AWAITING FOR CALL BACK
[2018-06-27] MEDS ORDERED: BISACODYL 10 MG SUPP PR SCH (10:45)
--- NOTE | 2018-06-27 10:47 | NUR ---
SPOKE WITH MD Kyler MEREDITH REGARDING A TOTAL OF 1300 OF GASTRIC OUTPUT SO FAR, IS ORDERING A CT OF ABD AROUND 1500 . WANTS TO FULLY DECOPRESS STOMACH WITH NG TUBE BEFORE SCAN ORDERS RECEIVED. PT AWARE OF PLAN OF CARE
[2018-06-27] MEDS: BISACODYL 10 MG SUPP PR SCH (10:48)
[2018-06-27] MEDS ORDERED: DIATRIZOATE MEGL/DIATRIZOA SOD 30 ML BTL PO ONE (14:45)
[2018-06-27] MEDS: PANTOPRAZOLE 40 MG 10ML VIAL IV SCH (15:41)
--- NOTE | 2018-06-27 16:13 | NUR ---
Nutrition Intervention Note RD Recommendation(s) for Physician: - Consider parenteral nutrition if pt remains NPO for more than 48 hours; consult RD for energy and protein needs. - If pt is tolerating PO: ADAT to GI soft/ ADA per MD. Plan of Care: RD following, monitoring for tolerance and adequacy Nutrition reason for involvement: LOS, NPO/ clear x [address] Assessment 06/27: 73 YOM admitted for mass colon and ventral hernia. Pt has NG tube placed and underwent an exploratory laparotomy, extensive lysis of adhesion, right hemicolectomy, and repair of ventral hernia on 06/21. Pt was advanced to a GI soft diet yesterday, 06/26 in which he reports he had a good appetite until dinner time, which he could not tolerate. Pt is now NPO. Recommended initiation of TPN if pt cannot feed with GI tract and remains NPO, pt has been on clear/full liquids x 6 days. Pt reported that he vomits sometimes, had a small BM last night but none this morning. Pt has no reports of chewing/swallowing issues. Pt reported a good appetite prior to admission and that he has seen no unintentional weight loss. Will continue to monitor. Please consult if pt need PN. Principal Problems/Diagnoses: Mass colon and ventral hernia PMH: Elective laparoscopic assisted right hemicolectomy, DM, HTN, HLD GI: Abdomen: round, distended; stool characteristics: formed, brown Skin: No pressure ulcer recorded. Labs: 06/27: Na 124 L, Gluc 292 H Meds: Insulin, NaCl, Abx, reglan, protonix, synthroid, Ht: 74 in Wt: 224 lbs BMI: 28.8 kg/ m2 IBW: 190 lbs Malnutrition Evaluation (06/27) The patient does not meet criteria for a specified degree of malnutrition at this time. Will re-evaluate at follow-up as appropriate. Nutrition Prescription (Diet Order): NPO Estimated Nutritional Needs: Calories: 1818-2222kcal (18-22kcal/kg/d) Weight used : CBW Protein : 101-151g (1-1.5kcal/kg/d) Weight used: CBW Diet Adequacy: Not meeting calorie needs, Not meeting protein needs NPO Diet Education Needs Assessment: Diet education not indicated, patient on temporary/transition diet. Nutrition Care Level: HIGH Nutrition Diagnosis: Inadequate energy intake related to medical condition as evidenced by pt only consuming clear/full liquids x 6 days. Goal: Patient will meet 75-100% of estimated needs by follow up Progress: N/A Interventions: -GI soft modified diet, Composition, Rate, Route, IVF, Collaboration with other providers Monitoring/Evaluation: -total energy intake, Total protein intake, Formula/Solution, IVF, Labs, GI tolerance Signed: Sonja Henry MS, RD, LD
--- NOTE | 2018-06-27 16:58 | NUR ---
PT OFF UNIT FOR CT SCAN AT THIS TIME
--- NOTE | 2018-06-27 17:20 | NUR ---
PT BACK FROM CT SCAN AT THIS TIME
--- NOTE | 2018-06-27 18:01 | Diagnostic Imaging Report ---
EXAM: CT Abdomen and Pelvis WITH contrast INDICATION: ^POSSIBLE ILLEUS ^Y COMPARISON: None. TECHNIQUE: Abdomen and pelvis were scanned utilizing a multidetector helical scanner from the lung base to the pubic symphysis after administration of IV contrast. Coronal and sagittal reformations were obtained. Dose modulation, iterative reconstruction, and/or weight based adjustment of the mA/kV was utilized to reduce the radiation dose to as low as reasonably achievable. Routine protocol was performed. Scan was performed when during portal venous phase. IV CONTRAST: 100 mL of Isovue-370 ORAL CONTRAST: Water COMPLICATIONS: None RADIATION DOSE: Total DLP: 534.36 mGy*cm Estimated effective dose: (DLP x 0.015 x size factor) mSv CTDIvol has been reviewed. It is below the limits set by the Radiation Protocol Committee (RPC). FINDINGS: LINES and TUBES: Nasogastric tube in place with tip terminating in gastric fundus. Bey catheter. LOWER THORAX: Small bilateral pleural effusions with mild adjacent compressive atelectasis. HEPATOBILIARY: No focal hepatic lesions. Calcified granuloma abutting the anterior hepatic dome. No biliary ductal dilation. GALLBLADDER: No radio-opaque stones or sludge. No wall thickening. SPLEEN: No splenomegaly. PANCREAS: No focal masses or ductal dilatation. ADRENALS: No adrenal nodules KIDNEYS/URETERS: Kidneys enhance symmetrically. No hydronephrosis. No renal mass. Bilateral too small to characterize hypodensities. No stones. GI TRACT: Evidence of right hemicolectomy. Mild wall thickening of the descending and rectosigmoid colon. The transverse colon is mildly distended with air. Air and fluid distention of small bowel loops throughout the abdomen with collapsed loops, seen in right abdomen. Redundant sigmoid colon. PELVIC ORGANS/BLADDER: Bladder is collapsed by a Bey catheter in place, demonstrating wall thickening and intraluminal air. LYMPH NODES: Prominent mesenteric lymph nodes. No retroperitoneal lymphadenopathy. VESSELS: Unremarkable. PERITONEUM / RETROPERITONEUM: No free air. Small volume dependent ascites. BONES: Unremarkable. SOFT TISSUES: Midline abdominal wall laparotomy scar and skin andrea. IMPRESSION: 1. Findings as described above, representing at least partial small bowel obstruction with transition point in the right abdomen, at or close to the anastomosis. 2. Small bilateral pleural effusions with mild adjacent compressive atelectasis. 3. Trace dependent ascites and prominent mesenteric lymph nodes, likely reactive. Signed by: Dr. Luigi Morgan MD on 06/27/2018 5:58 PM
--- NOTE | 2018-06-27 18:24 | NUR ---
md yair watson rounded on pt and has seen image of ct of abd md has ordered continued rest of bowel, keep ng tube in no orders received
--- NOTE | 2018-06-27 19:48 | NUR ---
SPOKE TO DR. FAZAL FERMIN AT THIS TIME REGARDING PT BP READING 171/74. ORDERED TO CRUSH BP MEDS AND GIVE THROUGH NGT. IF BP CONTINUES TO GO UP. APPLY NITRO PATCH/PASTE 1 GM Q6H SCHEDULED. Addendum: 06/27/18 at 1955 by Noah Moncada RN NEW ORDER ALSO RCV FOR PRN TYLENOL SUPP. Addendum: 06/27/18 at 2125 by Noah Monacda RN NITRO PATCH/PASTE DOSE IS 1 INCH Addendum: 06/28/18 at 0350 by Noah Moncada RN IF BP CONTINUES TO GO UP, APPLY NITRO PATCH/PASTE 1 INCH Q6H
[2018-06-27] MEDS ORDERED: SODIUM CHLORIDE 0.9% 50ML 50 ML ONE (19:58)
[2018-06-27] MEDS ORDERED: IOPAMIDOL 370 MG/ML 200 ML INFUS..BTL INJ ONE (19:59)
[2018-06-28] VITALS (8 sets, daily range): BP systolic 133–152; BP diastolic 64–67
[2018-06-28] MEDS: PIPER-TAZ 3.375 GM 50 ML IV SCH ×4 (03:30→21:04)
[2018-06-28] MEDS: ACETAMINOPHEN 650 MG SUPP PR PRN ×2 (03:48→21:45)
[2018-06-28] MEDS ORDERED: NITROGLYCERIN 2% OINT 1 GM PKT TOP PRN (04:00)
[2018-06-28] MEDS: SODIUM CHLORIDE 0.9% 1000ML 1,000 ML IV SCH ×2 (04:47→15:42)
[2018-06-28] MEDS: INSULIN REGULAR, HUMAN 100 UNIT/1 ML 3ML VIAL SQ SCH ×4 (06:12→18:01)
[2018-06-28 06:14] LABS: BASOPHILS % 0.3 % (0.0-1.0); EOSINOPHILS # (AUTO) 0.1 (0.0-0.4); EOSINOPHILS % 1.5 % (0.0-6.0); HEMATOCRIT 30.4 % (38.2-49.6); HEMOGLOBIN 10.3 g/dL (14.0-18.0); LYMPHOCYTES % 16.1 % (18.0-39.1); MEAN CORPUSCULAR HEMOGLOBIN 28.7 pg (28-32); MEAN CORPUSCULAR HGB CONC 33.9 g/dL (31-35); MEAN CORPUSCULAR VOLUME 84.7 fL (81-99); MONOCYTES # (AUTO) 0.8 (0.2-0.8); NEUTROPHILS # (AUTO) 4.2 (2.1-6.9); NEUTROPHILS % 68.6 % (38.7-80.0); PLATELET COUNT 210 x10e3/uL (140-360); RED BLOOD COUNT 3.59 x10e6/uL (4.3-5.7); RED CELL DISTRIBUTION WIDTH 12.2 % (11.7-14.4)
[2018-06-28 06:29] LABS: ALANINE AMINOTRANSFERASE 23 IU/L (0-55); ALBUMIN 2.6 g/dL (3.5-5.0); ALKALINE PHOSPHATASE 66 IU/L (40-150); AMYLASE 51 U/L (25-125); ANION GAP 13.8 mmol/L (8-16); BLOOD UREA NITROGEN 13 mg/dL (7-26); BUN/CREATININE RATIO 12 (6-25); CARBON DIOXIDE 20 mmol/L (22-29); CHLORIDE 101 mmol/L (98-107); CREATININE, SERUM 1.11 mg/dL (0.72-1.25); EST GLOMERULAR FILTRATION RATE > 60 ML/MIN (60-); GLUCOSE 208 mg/dL (74-118); POTASSIUM 3.8 mmol/L (3.5-5.1); SODIUM 131 mmol/L (136-145)
[2018-06-28] MEDS: OLMESARTAN 20 MG TAB PO SCH (10:18)
[2018-06-28] MEDS: DILTIAZEM HCL ER 120 MG CAP PO SCH (10:18)
[2018-06-28] MEDS: TAMSULOSIN HCL 0.4 MG CAP PO SCH (10:18)
[2018-06-28] MEDS: METOPROLOL SUCCINATE 50 MG TAB XL PO SCH (10:19)
--- NOTE | 2018-06-28 13:54 | Diagnostic Imaging Report ---
Exam: Acute abdominal series-4 views, PA chest radiograph-1 view Clinical History: Ileus. Comparison: CT abdomen/pelvis 06/27/2018, chest radiograph 06/19/2018. Findings: There are dilated small bowel loops, measuring up to 5.1 cm with some air within a decompressed colon. The degree of small bowel distention appears increased compared to CT on 06/27/2018, accounting for differences in technique. No evidence of free intraperitoneal air. Enteric tube terminates in the stomach, the side-port is near the GE junction. Surgical clips project over the lower midline abdomen and pelvis. The lungs appear clear. No evidence of pneumonia or pulmonary edema. No evidence of pleural effusion or pneumothorax The cardiomediastinal silhouette is unremarkable. No acute osseous abnormality. Impression: Increasing small bowel distention. Findings consistent with high-grade partial small bowel obstruction. No evidence of free air. Enteric tube terminates in stomach, the side-port is near the GE junction. Suggest advancement by approximately 5 cm. The above findings were discussed with HAWA Sumner on 06/28/2018 at 1:48 PM, who responded indicating that the communication was understood. Signed by: Dr. Cisco Du MD on 06/28/2018 1:51 PM
--- NOTE | 2018-06-28 15:01 | NUR ---
CALLED [facility] OFF[facility] REGARDING INCREASING SMALL BOWEL DISTENSION. FINDING COSISTENT WITH HIGH-GRADE PARTIAL SMALL BOWEL OBSTRUCTION, NGT NEEDED ADVANCEMENT PER DR. MOTLEY OF RADIOLOGY.
--- NOTE | 2018-06-28 15:25 | NUR ---
WOUND CARE SCREEN- PUP LOS: DAY 6 AGE: [age] YEAR OLD MALE DORY SCORE: 18 VISCO MATTRESS : PRESENT HOB : 30 DEGREES PUP: N/A PATIENT VISIT/SKIN SCREEN: SKIN ASSESSMENT DONE, PT NOTED TO HAVE ABDOMINAL INCISION WITH BELLE IN PLACE AND WELL APPROXIMATED, WITH ABD PAD AND ABDOMINAL BINDER IN PLACE. NO SKIN BREAKDOWN OR PRESSURE ULCER IDENTIFIED RECOMMENDATION; CONTINUE WITH CURRENT PLAN Addendum: 06/28/18 at 1540 by Shekhar Curtis RN Amended: Links added.
[2018-06-28] MEDS: PANTOPRAZOLE 40 MG 10ML VIAL IV SCH (15:42)
--- NOTE | 2018-06-28 19:25 | NUR ---
WALKING ROUNDS PERFORMED, RECEIVED PT LAYING SEMI FOWLERS IN BED, AAOX3, RR EVEN AND NON-LABORED, ON RA. NO S/SX OF DISTRESS NOTED. INCISION TO ANTERIOR ABD NOTED TO BE CDI WITH BELLE INTACT WITH ABD PAD COVERING INCISION AND SECURED WITH ABDOMINAL BINDER. NGT TO (R) NARE TO SUCTION. LEFT PT LAYING SEMI FOWLERS IN BED BED IN LOW LOCKED POSITION, SIDE RAILS UPX2, CALL LIGHT AND PHONE WITHIN REACH.
[2018-06-28] MEDS: BISACODYL 10 MG SUPP PR SCH (21:04)
--- NOTE | 2018-06-28 21:04 | NUR ---
FLUSHED NGT WITH 30 ML OF NS.
[2018-06-29] VITALS (8 sets, daily range): BP systolic 114–173; BP diastolic 60–75
[2018-06-29] MEDS: INSULIN REGULAR, HUMAN 100 UNIT/1 ML 3ML VIAL SQ SCH ×4 (00:15→17:52)
[2018-06-29] MEDS: SODIUM CHLORIDE 0.9% 1000ML 1,000 ML IV SCH ×2 (00:20→10:37)
--- NOTE | 2018-06-29 00:31 | NUR ---
FLUSHED NGT WITH 30 ML OF NS.
[2018-06-29] MEDS: PIPER-TAZ 3.375 GM 50 ML IV SCH ×4 (03:29→21:34)
--- NOTE | 2018-06-29 03:29 | NUR ---
FLUSHED NGT WITH 30 ML OF NS.
--- NOTE | 2018-06-29 06:20 | NUR ---
CHANGED SUCTION WALL CANISTER.
--- NOTE | 2018-06-29 06:28 | Diagnostic Imaging Report ---
Exam: Abdominal series Clinical History: Obstruction Comparison: 06/28/2018 DISCUSSION: Enteric tube overlying the left upper quadrant. Multiple dilated loops of small bowel measuring up to 4.7 cm, decreased from approximately 5.5 cm. No free air. IMPRESSION: Decreased small bowel dilation. Signed by: Dr. Jose Win M.D. on 06/29/2018 6:24 AM
[2018-06-29] MEDS ORDERED: BISACODYL 10 MG SUPP PR SCH ×2 (10:42→12:33)
[2018-06-29] MEDS: OLMESARTAN 20 MG TAB PO SCH (10:43)
[2018-06-29] MEDS: DILTIAZEM HCL ER 120 MG CAP PO SCH (10:43)
[2018-06-29] MEDS: TAMSULOSIN HCL 0.4 MG CAP PO SCH (10:43)
[2018-06-29] MEDS: METOPROLOL SUCCINATE 50 MG TAB XL PO SCH (10:44)
[2018-06-29] MEDS: BISACODYL 10 MG SUPP PR SCH ×2 (12:37→21:34)
[2018-06-29] MEDS: PANTOPRAZOLE 40 MG 10ML VIAL IV SCH (15:14)
--- NOTE | 2018-06-29 21:34 | NUR ---
WALL CANISTER CHANGED AT THIS TIME.
[2018-06-30] VITALS (8 sets, daily range): BP systolic 137–169; BP diastolic 62–79
[2018-06-30] MEDS: SODIUM CHLORIDE 0.9% 1000ML 1,000 ML IV SCH ×3 (00:22→17:37)
[2018-06-30] MEDS: INSULIN REGULAR, HUMAN 100 UNIT/1 ML 3ML VIAL SQ SCH ×4 (00:28→18:32)
[2018-06-30] MEDS: PIPER-TAZ 3.375 GM 50 ML IV SCH ×4 (03:28→22:09)
[2018-06-30] MEDS: SODIUM CHLORIDE 0.9% 250ML IRRIG IR SCH ×5 (03:28→22:09)
[2018-06-30] MEDS: METOPROLOL SUCCINATE 50 MG TAB XL PO SCH (09:17)
[2018-06-30] MEDS: TAMSULOSIN HCL 0.4 MG CAP PO SCH (09:17)
[2018-06-30] MEDS: DILTIAZEM HCL ER 120 MG CAP PO SCH (09:17)
[2018-06-30] MEDS: OLMESARTAN 20 MG TAB PO SCH (09:17)
--- NOTE | 2018-06-30 11:06 | NUR ---
PT REMAINS WITH NG TUBE AMBULATING IN HALLS
[2018-06-30] MEDS: BISACODYL 10 MG SUPP PR SCH (11:12)
--- NOTE | 2018-06-30 12:18 | Diagnostic Imaging Report ---
EXAMINATION: PA and lateral views of the chest. COMPARISON: CT abdomen 06/27/2018, abdominal radiographs CLINICAL HISTORY: Small bowel obstruction DISCUSSION: Chest: Lungs are well-inflated and without focal consolidation or pneumothorax. Probable trace right pleural effusion. Cardiomediastinal contour and pulmonary vasculature are within normal limits with the exception of atherosclerotic calcification of the thoracic aorta. Abdomen: Unchanged position of enteric tube, with the tip projecting over the gastric fundus. No significant interval change in the appearance of multiple dilated loops of small bowel to a maximum caliber of approximately 5 cm. No conrad pneumoperitoneum. No acute osseous abnormality. IMPRESSION: Persistent findings of high-grade small bowel obstruction. Trace right pleural effusion. Otherwise clear lungs. Signed by: Dr. Indio Ibarra M.D. on 06/30/2018 12:14 PM
--- NOTE | 2018-06-30 13:58 | NUR ---
Nutrition Intervention Note RD Recommendation(s) for Physician: - Consider parenteral nutrition if pt remains NPO for more than 48 hours; consult RD for energy and protein needs. Plan of Care: RD following, monitoring for tolerance and adequacy Nutrition reason for involvement: follow up RD Assessment 06/30: Improving prolonged ileus and Pt remains NPO with an NGT to suction. Pt has been NPO since 06/26 unable to tolerate GI soft diet. Pt is ready to eat. 06/27: 73 YOM admitted for mass colon and ventral hernia. Pt has NG tube placed and underwent an exploratory laparotomy, extensive lysis of adhesion, right hemicolectomy, and repair of ventral hernia on 06/21. Pt was advanced to a GI soft diet yesterday, 06/26 in which he reports he had a good appetite until dinner time, which he could not tolerate. Pt is now NPO. Recommended initiation of TPN if pt cannot feed with GI tract and remains NPO, pt has been on clear/full liquids x 6 days. Pt reported that he vomits sometimes, had a small BM last night but none this morning. Pt has no reports of chewing/swallowing issues. Pt reported a good appetite prior to admission and that he has seen no unintentional weight loss. Will continue to monitor. Please consult if pt need PN. Principal Problems/Diagnoses: Mass colon and ventral hernia PMH: Elective laparoscopic assisted right hemicolectomy, DM, HTN, HLD GI: Abdomen: round, soft; no BM Skin: No pressure ulcer recorded. Labs: 06/30: lab results reviewed Meds: Insulin, NaCl, Abx, reglan, protonix, synthroid, Ht: 74 in Wt: 224 lbs, (06/30) 214.25lbs BMI: 27.5kg/ m2 IBW: 190 lbs Malnutrition Evaluation (06/27) The patient does not meet criteria for a specified degree of malnutrition at this time. Will re-evaluate at follow-up as appropriate. Nutrition Prescription (Diet Order): NPO Estimated Nutritional Needs: Calories: 1818-2222kcal (18-22kcal/kg/d) Weight used : CBW Protein : 101-151g (1-1.5kcal/kg/d) Weight used: CBW Diet Adequacy: Not meeting calorie needs, Not meeting protein needs NPO Diet Education Needs Assessment: Diet education not indicated, patient on temporary/transition diet. Nutrition Care Level: HIGH Nutrition Diagnosis: Inadequate energy intake related to medical condition as evidenced by pt only consuming clear/full liquids x 6 days. Goal: Patient will meet 75-100% of estimated needs by follow up Progress: N/A Interventions: -GI soft modified diet, Composition, Rate, Route, IVF, Collaboration with other providers Monitoring/Evaluation: -total energy intake, Total protein intake, Formula/Solution, IVF, Labs, GI tolerance Eder Rodarte RD, ANGI, CNSC
[2018-06-30] MEDS: PANTOPRAZOLE 40 MG 10ML VIAL IV SCH (15:40)
[2018-07-01] VITALS (9 sets, daily range): BP systolic 142–166; BP diastolic 67–71
[2018-07-01] MEDS: SODIUM CHLORIDE 0.9% 250ML IRRIG IR SCH ×6 (00:27→20:30)
[2018-07-01] MEDS: INSULIN REGULAR, HUMAN 100 UNIT/1 ML 3ML VIAL SQ SCH ×4 (00:30→18:30)
[2018-07-01] MEDS: PIPER-TAZ 3.375 GM 50 ML IV SCH ×4 (04:00→20:30)
[2018-07-01] MEDS: SODIUM CHLORIDE 0.9% 1000ML 1,000 ML IV SCH ×2 (04:09→13:37)
[2018-07-01 06:35] LABS: BASOPHILS % 0.3 % (0.0-1.0); EOSINOPHILS # (AUTO) 0.1 (0.0-0.4); HEMATOCRIT 30.1 % (38.2-49.6); LYMPHOCYTES # (AUTO) 1.6 (1.0-3.2); LYMPHOCYTES % 13.4 % (18.0-39.1); MEAN CORPUSCULAR HEMOGLOBIN 28.9 pg (28-32); MEAN CORPUSCULAR HGB CONC 33.2 g/dL (31-35); MONOCYTES % 8.4 % (4.4-11.3); NEUTROPHILS # (AUTO) 8.9 (2.1-6.9); NEUTROPHILS % 76.2 % (38.7-80.0); PLATELET COUNT 237 x10e3/uL (140-360); RED BLOOD COUNT 3.46 x10e6/uL (4.3-5.7); RED CELL DISTRIBUTION WIDTH 12.7 % (11.7-14.4)
[2018-07-01 06:50] LABS: ALANINE AMINOTRANSFERASE 16 IU/L (0-55); ALBUMIN 2.6 g/dL (3.5-5.0); ALBUMIN/GLOBULIN RATIO 0.8 (0.8-2.0); ALKALINE PHOSPHATASE 67 IU/L (40-150); ANION GAP 15.7 mmol/L (8-16); BLOOD UREA NITROGEN 11 mg/dL (7-26); BUN/CREATININE RATIO 11 (6-25); CARBON DIOXIDE 19 mmol/L (22-29); CHLORIDE 109 mmol/L (98-107); EST GLOMERULAR FILTRATION RATE > 60 ML/MIN (60-); GLUCOSE 166 mg/dL (74-118); POTASSIUM 3.7 mmol/L (3.5-5.1); SODIUM 140 mmol/L (136-145)
[2018-07-01] MEDS: TAMSULOSIN HCL 0.4 MG CAP PO SCH (08:23)
[2018-07-01] MEDS: METOPROLOL SUCCINATE 50 MG TAB XL PO SCH (08:23)
[2018-07-01] MEDS: DILTIAZEM HCL ER 120 MG CAP PO SCH (08:23)
[2018-07-01] MEDS: OLMESARTAN 20 MG TAB PO SCH (08:23)
[2018-07-01] MEDS ORDERED: BISACODYL 10 MG SUPP PR NR (13:45)
--- NOTE | 2018-07-01 13:52 | NUR ---
ng tube replaced per md mazariegos shirley orders. pt tolerated well 16f placed. will get kub per protocol to check for placement
--- NOTE | 2018-07-01 14:54 | Diagnostic Imaging Report ---
EXAM: ABDOMEN-1VIEW (KUB), DATE: 07/01/2018 1:53 PM INDICATION: NG tube placement. COMPARISON: 06/30/2018. FINDINGS: Limited exam. LINES/TUBES: NG tube with distal tip projected on the left upper quadrant laterally, likely within gastric fundus. BOWEL PATTERN: Mild gaseous distention of small bowel loops in the left upper quadrant. SOFT TISSUES: No abnormal calcifications. No mass effect. LUNG BASES: Clear. BONES: No acute findings. IMPRESSION: NG tube with distal tip projected on the left upper quadrant laterally, likely within gastric fundus. Signed by: Dr. Migel Simon M.D. on 07/01/2018 2:50 PM
[2018-07-01] MEDS: PANTOPRAZOLE 40 MG 10ML VIAL IV SCH (16:11)
--- NOTE | 2018-07-01 19:34 | NUR ---
received patient aaox3, in stable condition. clamped NGT, and assisted patient out of bed to ambulate hallway with walker.
[2018-07-02] VITALS (7 sets, daily range): BP systolic 142–194; BP diastolic 65–95
[2018-07-02] MEDS: INSULIN REGULAR, HUMAN 100 UNIT/1 ML 3ML VIAL SQ SCH ×4 (00:42→18:28)
[2018-07-02] MEDS: SODIUM CHLORIDE 0.9% 250ML IRRIG IR SCH ×5 (00:42→16:04)
[2018-07-02] MEDS: PIPER-TAZ 3.375 GM 50 ML IV SCH ×4 (03:40→21:48)
[2018-07-02] MEDS: SODIUM CHLORIDE 0.9% 1000ML 1,000 ML IV SCH ×3 (07:40→21:48)
[2018-07-02] MEDS: TAMSULOSIN HCL 0.4 MG CAP PO SCH (08:30)
[2018-07-02] MEDS: DILTIAZEM HCL ER 120 MG CAP PO SCH (08:30)
[2018-07-02] MEDS: OLMESARTAN 20 MG TAB PO SCH (08:30)
[2018-07-02] MEDS: METOPROLOL SUCCINATE 50 MG TAB XL PO SCH (08:30)
--- NOTE | 2018-07-02 11:21 | NUR ---
MD Kyler MEREDITH ROUNDED AND STATES TO CLAMP TUBE FOR 4 HOURS. AND RESUME SUCTION THEN AND CALL HIM WITH GASTRIC OUTPUT. ORDERS RECEIVED
[2018-07-02] MEDS ORDERED: BISACODYL 10 MG SUPP PR NR ×2 (11:30→21:00)
[2018-07-02] MEDS: PANTOPRAZOLE 40 MG 10ML VIAL IV SCH (14:52)
--- NOTE | 2018-07-02 17:23 | NUR ---
spoke with md yair watson regarding no output upon reconnecting suction to ng tube after 4 hours . orders ng tube to be removed, dulcolax at night and morning, and cbc, and bmp in the am. wants to keep pt npo orders received
--- NOTE | 2018-07-02 17:39 | NUR ---
removed ng tube per md mazariegos shirley orders at this time
[2018-07-03] VITALS (7 sets, daily range): BP systolic 121–171; BP diastolic 58–74
[2018-07-03] MEDS: INSULIN REGULAR, HUMAN 100 UNIT/1 ML 3ML VIAL SQ SCH ×4 (00:50→18:06)
[2018-07-03] MEDS: PIPER-TAZ 3.375 GM 50 ML IV SCH ×4 (02:28→21:13)
[2018-07-03 06:53] LABS: BASOPHILS % 0.3 % (0.0-1.0); EOSINOPHILS # (AUTO) 0.2 (0.0-0.4); EOSINOPHILS % 2.1 % (0.0-6.0); HEMATOCRIT 29.4 % (38.2-49.6); HEMOGLOBIN 9.8 g/dL (14.0-18.0); LYMPHOCYTES # (AUTO) 1.6 (1.0-3.2); LYMPHOCYTES % 17.5 % (18.0-39.1); MEAN CORPUSCULAR HGB CONC 33.3 g/dL (31-35); MONOCYTES # (AUTO) 0.7 (0.2-0.8); MONOCYTES % 7.9 % (4.4-11.3); NEUTROPHILS # (AUTO) 6.5 (2.1-6.9); NEUTROPHILS % 71.5 % (38.7-80.0); PLATELET COUNT 241 x10e3/uL (140-360); RED BLOOD COUNT 3.38 x10e6/uL (4.3-5.7); RED CELL DISTRIBUTION WIDTH 13.2 % (11.7-14.4)
[2018-07-03 07:34] LABS: ANION GAP 14.6 mmol/L (8-16); BLOOD UREA NITROGEN 11 mg/dL (7-26); BUN/CREATININE RATIO 10 (6-25); CARBON DIOXIDE 19 mmol/L (22-29); CHLORIDE 114 mmol/L (98-107); CREATININE, SERUM 1.08 mg/dL (0.72-1.25); EST GLOMERULAR FILTRATION RATE > 60 ML/MIN (60-); GLUCOSE 201 mg/dL (74-118); POTASSIUM 3.6 mmol/L (3.5-5.1); SODIUM 144 mmol/L (136-145)
[2018-07-03] MEDS ORDERED: BISACODYL 10 MG SUPP PR NR (08:00)
[2018-07-03] MEDS: TAMSULOSIN HCL 0.4 MG CAP PO SCH (08:19)
[2018-07-03] MEDS: DILTIAZEM HCL ER 120 MG CAP PO SCH (08:19)
[2018-07-03] MEDS: METOPROLOL SUCCINATE 50 MG TAB XL PO SCH (08:19)
[2018-07-03] MEDS: OLMESARTAN 20 MG TAB PO SCH (08:19)
[2018-07-03] MEDS: SODIUM CHLORIDE 0.9% 1000ML 1,000 ML IV SCH ×2 (09:24→15:37)
--- NOTE | 2018-07-03 10:20 | NUR ---
PT AMBULATING IN HALLWAY AT THIS TIME.
--- NOTE | 2018-07-03 11:14 | NUR ---
NG TUBE OUT IMM EXPLAINED, SIGNED AND PLACED IN CHART COPY IN CARE TRANSITION FOLDER
[2018-07-03] MEDS: PANTOPRAZOLE 40 MG 10ML VIAL IV SCH (14:12)
--- NOTE | 2018-07-03 14:58 | NUR ---
PT AMBULATING IN HALLWAY AT THIS TIME.
--- NOTE | 2018-07-03 17:06 | NUR ---
Nutrition Intervention Note RD Recommendation(s) for Physician: - Pt now NPO day 7, recommend CL diet with Ensure Clear TID and ADAT to goal of GI Soft. - If unable to advance diet within 24 hrs, recommend TPN when BG controlled under 200. Initiation of TPN contraindicated when BG is over 200 per ASPEN guidelines. - BG and insulin management per MD. - Pt at risk for refeeding, please check Mg and Phos with BMP. Replace low lytes as needed. - TPN rec's: TV of 1920 ml at 80 ml/hr with components of Dextrose 120 g/day, AA10% 110 g/day, 20% Lipids 20 g/day, Na Cl 35 mEq/L, K Acetate 35 mEq/L, Mg Sulfate 10 mEq/L, Ca Gluconate 5 mEq/L, K Phos 5 mmol/L, MVI, trace. - Discontinue or decrease IVF if/when TPN initiated. - Check Mg and Phos daily with BMP if/when on TPN. Check TG weekly. Plan of Care: RD following, monitoring for tolerance and adequacy Nutrition reason for involvement: follow up RD Assessment 07/03: Pt discussed during am rounds, no plan for diet advancement yet. NGT removed today, pt remains NPO and on IVF of NS. Pt denies abdominal pain or N/V, having BMs. Pt denies being hungry, but states he would like to eat. Pt BG trend over 200, TPN contraindicated at this time due to trend. Rec's provided. 06/30: Improving prolonged ileus and Pt remains NPO with an NGT to suction. Pt has been NPO since 06/26 unable to tolerate GI soft diet. Pt is ready to eat. 06/27: 73 YOM admitted for mass colon and ventral hernia. Pt has NG tube placed and underwent an exploratory laparotomy, extensive lysis of adhesion, right hemicolectomy, and repair of ventral hernia on 06/21. Pt was advanced to a GI soft diet yesterday, 06/26 in which he reports he had a good appetite until dinner time, which he could not tolerate. Pt is now NPO. Recommended initiation of TPN if pt cannot feed with GI tract and remains NPO, pt has been on clear/full liquids x 6 days. Pt reported that he vomits sometimes, had a small BM last night but none this morning. Pt has no reports of chewing/swallowing issues. Pt reported a good appetite prior to admission and that he has seen no unintentional weight loss. Will continue to monitor. Please consult if pt need PN. Principal Problems/Diagnoses: Mass colon and ventral hernia PMH: Elective laparoscopic assisted right hemicolectomy, DM, HTN, HLD GI: Abdomen: round, soft; LBM 07/03 Skin: No pressure ulcer recorded. Labs: 07/03: Na 144, K 3.6, Cl 114, CO2 19, BUN 11, Cr 1.08, Gluc 201, Ca 8, POC Gluc 201-204. No Mg or Phos drawn since admit. Meds: abx, protonix, insulin, reglan, zofran Ht: 74 in Wt: 224 lbs, (06/30) 214.25lbs BMI: 27.5kg/ m2 IBW: 190 lbs Malnutrition Evaluation (06/27) The patient does not meet criteria for a specified degree of malnutrition at this time. Will re-evaluate at follow-up as appropriate. Nutrition Prescription (Diet Order): NPO Estimated Nutritional Needs: Calories: 1818-2222kcal (18-22kcal/kg/d) Weight used : CBW Protein : 101-151g (1-1.5kcal/kg/d) Weight used: CBW Diet Adequacy: Not meeting calorie needs, Not meeting protein needs NPO Diet Education Needs Assessment: Diet education not indicated, patient on temporary/transition diet. Nutrition Care Level: HIGH Nutrition Diagnosis: Inadequate energy intake related to medical condition as evidenced by pt only consuming clear/full liquids x 6 days. Goal: Patient will meet 75-100% of estimated needs by follow up Progress: Not progressing Interventions: -GI soft modified diet, Composition, Rate, Route, IVF, Collaboration with other providers Monitoring/Evaluation: -total energy intake, Total protein intake, Formula/Solution, IVF, Labs, GI tolerance Signed: Kelly Luna RD, LD, [facility]
[2018-07-04] VITALS (8 sets, daily range): BP systolic 139–177; BP diastolic 65–83
[2018-07-04] MEDS: INSULIN REGULAR, HUMAN 100 UNIT/1 ML 3ML VIAL SQ SCH ×4 (00:28→18:55)
[2018-07-04] MEDS: SODIUM CHLORIDE 0.9% 1000ML 1,000 ML IV SCH ×3 (01:37→22:58)
[2018-07-04] MEDS: PIPER-TAZ 3.375 GM 50 ML IV SCH ×4 (03:14→21:05)
--- NOTE | 2018-07-04 09:05 | NUR ---
MILLAN CATHETER D/C AT THIS TIME. 225 ML LAKISHA CLOUDY URINE EMPTIED FROM THE BAG. INSTRUCTED PT TO USE URINAL WITH EACH VOID AND NOTIFY NURSE SO BLADDER SCAN CAN BE COMPLETE TO ASSESS POST VOID RESIDUAL. PT VERBALIZED UNDERSTANDING.
[2018-07-04] MEDS: OLMESARTAN 20 MG TAB PO SCH (09:12)
[2018-07-04] MEDS: DILTIAZEM HCL ER 120 MG CAP PO SCH (09:12)
[2018-07-04] MEDS: TAMSULOSIN HCL 0.4 MG CAP PO SCH (09:13)
[2018-07-04] MEDS: METOPROLOL SUCCINATE 50 MG TAB XL PO SCH (09:13)
--- NOTE | 2018-07-04 10:00 | NUR ---
PT AMBULATING IN HALLWAY AT THIS TIME.
--- NOTE | 2018-07-04 12:10 | NUR ---
PT AMBULATING IN HALLWAY AT THIS TIME.
--- NOTE | 2018-07-04 14:40 | NUR ---
PT VOIDED 100 ML IN URINAL. STATES HE VOIDED "ABOUT AN HOUR AGO". BLADDER SCAN COMPLETE ANYWAY FOR PVR, [address] Bing CERDA NOTIFIED. STATES TO CHECK PVR AGAIN RIGHT AFTER VOID FOR PVR. REINFORCED PT TO CALL RIGHT AFTER USING URINAL FOR ACCURATE PVR ASSESSMENT. PT VERBALIZED UNDERSTANDING.
[2018-07-04] MEDS: PANTOPRAZOLE 40 MG 10ML VIAL IV SCH (15:00)
--- NOTE | 2018-07-04 17:46 | NUR ---
PT VOIDED 200 ML AT THIS TIME. BLADDER SCAN COMPLETE FOR PVR [address]DER[address] Bing CERDA NOTIFIED. STATES PT WILL NEED TO BE TAUGHT SELF CATH POST VOID AT LEAST 5 TIMES PER DAY EVERY 4 HOURS EXCEPT AT NIGHT OR HE CAN HAVE A MILLAN CATHETER. PT CAN DECIDE. IF PT CHOOSES MILLAN CATHETER ORDERS RECEIVED TO PLACE 18 F MILLAN.
--- NOTE | 2018-07-04 17:55 | NUR ---
ORDERS EXPLAINED TO PT. PT HAS DECIDED TO HAVE MILLAN CATHETER INSTEAD OF SELF CATH. 18 F MILLAN WILL BE PLACED.
--- NOTE | 2018-07-04 18:21 | NUR ---
18F MILLAN CATHETER PLACED 50 ML URINE OUTPUT. PAGED DR. Bing CERDA TO NOTIFY.
--- NOTE | 2018-07-04 18:28 | NUR ---
SPOKE WITH DR. Bing CERDA NOTIFIED REGARDING ONLY 50 ML OUTPUT AFTER MILLAN CATHETER PLACED. STATES D/C IMLLAN. PT DOES NOT NEED IT, BLADDER SCANNER INCORRECT. STRAIGHT CATH NEEDED.
--- NOTE | 2018-07-04 18:49 | NUR ---
MILLAN D/C AT THIS TIME. PT TOLERATED WELL. INSTRUCTED TO USE URINAL AND NOTIFY NURSE WHEN VOIDS. PT VERBALIZED UNDERSTANDING.
--- NOTE | 2018-07-04 20:30 | NUR ---
PATIENT VOIDED FREELY 100ML YELLOWISH COLOR URINE. NO DYSURIA OR BLADDER DISTENTION NOTED.
[2018-07-05] VITALS (8 sets, daily range): BP systolic 125–171; BP diastolic 58–77
[2018-07-05] MEDS: PIPER-TAZ 3.375 GM 50 ML IV SCH ×4 (03:31→21:00)
[2018-07-05] MEDS: INSULIN REGULAR, HUMAN 100 UNIT/1 ML 3ML VIAL SQ SCH ×4 (06:02→18:22)
--- NOTE | 2018-07-05 07:29 | NUR ---
RECEIVED PATIENT AWAKE IN BED NO SIGNS OF DISTRESS. CALL LIGHT IN REACH WILL CONTINUE TO MONITOR.
[2018-07-05] MEDS: DILTIAZEM HCL ER 120 MG CAP PO SCH (09:01)
[2018-07-05] MEDS: METOPROLOL SUCCINATE 50 MG TAB XL PO SCH (09:01)
[2018-07-05] MEDS: OLMESARTAN 20 MG TAB PO SCH (09:01)
[2018-07-05] MEDS: TAMSULOSIN HCL 0.4 MG CAP PO SCH (09:01)
--- NOTE | 2018-07-05 09:45 | NUR ---
PATIENT A/O X3 EVEN RESPIRATIONS ON RA. BOWEL SOUNDS ACTIVE, PATIENT HAVING BM'S. PATIENT TOLERATED FULL LIQUID DIET FOR BREAKFAST. LEFT FA 20 GAUGE IV WITH NS @ 50 CC/HR. PATIENT AMBULATORY VOIDS IN URINAL/TOILET. CALL LIGHT IN REACH, WILL CONTINUE TO MONITOR.
--- NOTE | 2018-07-05 10:45 | NUR ---
PATIENT AMBULATING IN [place] AT THIS TIME. STEADY GAIT. NO SIGNS OF DISTRESS NOTED.
--- NOTE | 2018-07-05 14:05 | NUR ---
Follow-up Note RD Recommendation(s) for Physician: -Advance diet to GI soft/ ADA as medically appropriate Plan of Care: RD following, monitoring for tolerance and adequacy Nutrition reason for involvement: Follow up RD Assessment 07/05: Visited pt in the room. Diet has been advanced to full liquid today. Pt tolerated full liquid well without any GI complains. Pt denied any swallowing difficulty. LBM 07/05. Plan to discharge when advanced to regular diet tomorrow. 07/03: Pt discussed during am rounds, no plan for diet advancement yet. NGT removed today, pt remains NPO and on IVF of NS. Pt denies abdominal pain or N/V, having BMs. Pt denies being hungry, but states he would like to eat. Pt BG trend over 200, TPN contraindicated at this time due to trend. Rec's provided. 06/30: Improving prolonged ileus and Pt remains NPO with an NGT to suction. Pt has been NPO since 06/26 unable to tolerate GI soft diet. Pt is ready to eat. 06/27: 73 YOM admitted for mass colon and ventral hernia. Pt has NG tube placed and underwent an exploratory laparotomy, extensive lysis of adhesion, right hemicolectomy, and repair of ventral hernia on 06/21. Pt was advanced to a GI soft diet yesterday, 06/26 in which he reports he had a good appetite until dinner time, which he could not tolerate. Pt is now NPO. Recommended initiation of TPN if pt cannot feed with GI tract and remains NPO, pt has been on clear/full liquids x 6 days. Pt reported that he vomits sometimes, had a small BM last night but none this morning. Pt has no reports of chewing/swallowing issues. Pt reported a good appetite prior to admission and that he has seen no unintentional weight loss. Will continue to monitor. Please consult if pt need PN. Principal Problems/Diagnoses: Mass colon and ventral hernia PMH: Elective laparoscopic assisted right hemicolectomy, DM, HTN, HLD GI: Abdomen: round, soft; LBM 07/05 Skin: No pressure ulcer recorded. Labs: 07/05: BG 205 281 H 07/03: Na 144, K 3.6, Cl 114, CO2 19, BUN 11, Cr 1.08, Gluc 201, Ca 8, POC Gluc 201-204. No Mg or Phos drawn since admit. Meds: NaCl Ht: 74 in Wt: 224 lbs, (06/30) 214.25lbs; 212.06lb BMI: 27.5kg/ m2 IBW: 190 lbs Malnutrition Evaluation (06/27) The patient does not meet criteria for a specified degree of malnutrition at this time. Will re-evaluate at follow-up as appropriate. Nutrition Prescription (Diet Order): full liquid Estimated Nutritional Needs: Calories: 1818-2222kcal (18-22kcal/kg/d) Weight used : CBW Protein : 101-151g (1-1.5kcal/kg/d) Weight used: CBW Diet Adequacy: Not meeting calorie needs, Not meeting protein needs Full liquid Diet Education Needs Assessment: Diet education not indicated, patient on temporary/transition diet. Nutrition Care Level: Mod Nutrition Diagnosis: Inadequate energy intake related to medical condition as evidenced by pt only consuming clear/full liquids x 6 days. Goal: Patient will meet 75-100% of estimated needs by follow up Progress: Progressing Interventions: -GI soft modified diet Monitoring/Evaluation: -total energy intake, Total protein intake, Labs, GI tolerance, Daily weight Signed: Sonja Henry, MS, RD, LD
--- NOTE | 2018-07-05 14:44 | NUR ---
COMMUNICATION WITH DR AVELAR REGARDING LOS
[2018-07-05] MEDS: SODIUM CHLORIDE 0.9% 1000ML 1,000 ML IV SCH (17:45)
[2018-07-05] MEDS ORDERED: ONDANSETRON HCL 4 MG ORAL DISINTEGRATING TAB PO PRN (19:30)
[2018-07-05] MEDS: BISACODYL 10 MG SUPP PR SCH (21:03)
[2018-07-06] VITALS: BP 155/71
[2018-07-06] MEDS: INSULIN REGULAR, HUMAN 100 UNIT/1 ML 3ML VIAL SQ SCH ×3 (00:31→12:47)
[2018-07-06 04:00] VITALS: BP 124/60
[2018-07-06] MEDS: PIPER-TAZ 3.375 GM 50 ML IV SCH ×3 (04:00→15:54)
--- NOTE | 2018-07-06 07:09 | NUR ---
REPORT GIVEN TO ONCOMING NURSE.WALKING ROUNDS MADE.PT RESTING IN BED WITH NO S/S OF DISTRESS.
[2018-07-06] MEDS ORDERED: PANTOPRAZOLE SOD 40 MG TABEC PO SCH (07:30)
--- NOTE | 2018-07-06 07:36 | NUR ---
RECEIVED PATIENT AND WALKING ROUNDS COMPLETE. PATIENT ASLEEP AT THIS TIME, NO SIGNS OF DISTRESS. CALL LIGHT IN REACH WILL CONTINUE TO MONITOR.
[2018-07-06] MEDS: BISACODYL 10 MG SUPP PR SCH ×2 (08:00→12:06)
[2018-07-06 08:16] VITALS: BP 161/75
[2018-07-06] MEDS: TAMSULOSIN HCL 0.4 MG CAP PO SCH (09:46)
[2018-07-06] MEDS: METOPROLOL SUCCINATE 50 MG TAB XL PO SCH (09:46)
[2018-07-06] MEDS: DILTIAZEM HCL ER 120 MG CAP PO SCH (09:46)
[2018-07-06] MEDS: OLMESARTAN 20 MG TAB PO SCH (09:46)
--- NOTE | 2018-07-06 09:55 | NUR ---
PATIENT A/O X3, EVEN RESPIRATIONS ON RA. BOWEL SOUNDS ACTIVE, SKIN INTACT, NO EDEMA. IV FLUIDS AT THIS TIME. PATIENT ON FULL LIQUID DIET TOLERATING WELL. PATIENT AMBULATORY VOIDS IN TOILET/URINAL. AT BEDSIDE. CALL LIGHT IN REACH. NO SIGNS OF DISTRESS NOTED.
[2018-07-06 12:05] VITALS: BP 161/75
[2018-07-06 12:15] VITALS: BP 172/80
[2018-07-06] MEDS ORDERED: BISACODYL 10 MG SUPP PR SCH (13:00)
[2018-07-06] MEDS: SODIUM CHLORIDE 0.9% 1000ML 1,000 ML IV SCH (14:58)
[2018-07-06 16:48] VITALS: BP 156/73
--- NOTE | 2018-07-06 18:05 | NUR ---
REMOVED PATIENTS IV. CATHETER TIP INTACT AND PRESSURE DRESSING APPLIED.
--- NOTE | 2018-07-06 18:11 | NUR ---
PATIENT DISCHARGED FROM FACILITY. PATIENT GATHERED ALL PERSONAL BELONGINGS, DISCHARGE INSTRUCTIONS, FOLLOW UP INFORMATION. PATIENT LEFT UNIT IN WHEELCHAIR AND WENT HOME VIA PRIVATE AUTO. NO SIGNS OF DISTRESS WHEN LEAVING FACILITY.
== END 2018-07-06 18:15 | disposition home or self-care (01) | DRG 330 ==
LOC: OR 06:06 → PACU V 11:27 → MED/SURG 14:18
PROVIDERS: ADMIT Surgery; ATTEND Surgery
PROC: 0DN80ZZ Release Small Intestine, Open Approach (ICD-10-PCS; 2018-06-21)
PROC: 0DNB0ZZ Release Ileum, Open Approach (ICD-10-PCS; 2018-06-21)
PROC: 0DTF0ZZ Resection of Right Large Intestine, Open Approach (ICD-10-PCS; principal; 2018-06-21 08:49)
PROC: 0DNK0ZZ Release Ascending Colon, Open Approach (ICD-10-PCS; 2018-06-21 08:49)
DX: D12.2 Benign neoplasm of ascending colon (principal); E87.1 Hypo-osmolality and hyponatremia; K91.31 Postprocedural partial intestinal obstruction; K66.0 Peritoneal adhesions (postprocedural) (postinfection); K43.9 Ventral hernia without obstruction or gangrene; Z01.810 Encounter for preprocedural cardiovascular examination; Z01.812 Encounter for preprocedural laboratory examination; Z01.811 Encounter for preprocedural respiratory examination; I10 Essential (primary) hypertension; E78.00 Pure hypercholesterolemia, unspecified; E03.9 Hypothyroidism, unspecified; E11.9 Type 2 diabetes mellitus without complications; N40.1 Benign prostatic hyperplasia with lower urinary tract symptoms; R33.8 Other retention of urine; D64.9 Anemia, unspecified; R39.14 Feeling of incomplete bladder emptying; Z79.82 Long term (current) use of aspirin; Z79.4 Long term (current) use of insulin
CPT/HCPCS: 36415; 71046; 74018; 74022; 74177; 80048; 80053; 82150; 82948; 83605; 85025; 88307; 93005; 96361; 96372; J0694; J1100; J2001; J2250; J2405; J2543; J2550; J2765; J7030; Q9967

== ENCOUNTER → 2019-06-05 | Day surgery (SDC) | payer MEDICARE ==
[2019-05-31 10:56] LABS: BASOPHILS % 0.7 % (0.0-1.0); EOSINOPHILS # (AUTO) 0.1 (0.0-0.4); EOSINOPHILS % 2.4 % (0.0-6.0); HEMATOCRIT 37.8 % (38.2-49.6); HEMOGLOBIN 12.2 g/dL (14.0-18.0); LYMPHOCYTES % 33.7 % (18.0-39.1); MEAN CORPUSCULAR HEMOGLOBIN 28.1 pg (28-32); MEAN CORPUSCULAR HGB CONC 32.3 g/dL (31-35); MEAN CORPUSCULAR VOLUME 87.1 fL (81-99); MONOCYTES # (AUTO) 0.6 (0.2-0.8); MONOCYTES % 10.1 % (4.4-11.3); NEUTROPHILS # (AUTO) 3.1 (2.1-6.9); NEUTROPHILS % 52.8 % (38.7-80.0); PLATELET COUNT 219 x10e3/uL (140-360); RED BLOOD COUNT 4.34 x10e6/uL (4.3-5.7); RED CELL DISTRIBUTION WIDTH 12.6 % (11.7-14.4)
[~2019-06-05] MED LIST changes: +FENTANYL CITRATE/PF 100MCG/2 ML INJ ONE; +MIDAZOLAM HCL 2 MG/2 ML VIAL ONE; +PROPOFOL IV EMULSION 10 MG/ML 50 ML VIAL ONE
--- OUTSIDE RECORDS SUMMARY | 2019-06-05 10:42 | XMS REPORT | Encounter Summary ---
Author Organization Unknown Address [address] [place] [address] Phone [phone] Care Team Providers Care Education Reviewer Name Role Phone Dr. Jonathan Jarquin 3 [phone] Jonathan Jarquin Jr, MD 3 [phone] Jose Robbins MD 111 [phone] Reason for Visit hospital follow up - [facility] ([facility]) Instructions 1. Type 2 diabetes mellitus glucose, fingerstick, blood 2. Mass of colon 3. History of partial resection of colon 4. Hospital patient 5. Benign hypertensive renal disease 6. Chronic kidney disease stage 2 Discussion Note: None recorded. Patient educational handouts: No information available. Plan of Care Patient Instructions Please follow up with your doctor in four weeks. Follow up with any specialists that we discussed during your visit today. If you need help getting your medications filled, our [facility] can sync medication refills, deliver within a 10 mile radius, or [facility] overnight at no additional cost. Please watch for warning symptoms that may occur: *fever *redness/oozing at surgical site *shortness of breath *uncontrolled pain *unexpected weight gain/loss *high or low blood pressure *chest pain *confusion *any other health concerns Call us at if you experience these symptoms. In addition to these services our office offers social insurance administrator services, home health options and chronic conditions management. Please reach out to us with your particular needs. Evening and Tuesday clinic hours are available if you have problems. If you have problems after hours, you can reach the [facility] physician manager business information at . Reminders Provider Appointments Est Patient 08/11/2018 8:45AM Jonathan Jarquin Jr, MD Lab Glucose, Fingerstick, Blood 07/14/2018 [facility] ([facility]) Hobby Referral None recorded. Procedures None recorded. Surgeries None recorded. Imaging None recorded. Medications Name Start Date atorvastatin 10 mg tablet TAKE 1 TABLET BY MOUTH EVERY DAY BD Ultra-Fine Mini Pen Needle 31 gauge x 3/16" USE TWICE A DAY OR DIRECTED. diltiazem CD 240 mg capsule,extended release 24 hr TAKE 1 CAPSULE BY MOUTH EVERY DAY appt reminder 07-12-2018 10:00 AM, Jonathan Jarquin Jr, MD Ecotrin Low Strength 81 mg tablet,enteric coated Take 1 tablet every day by oral route. hydrochlorothiazide 25 mg tablet TAKE 1 TABLET BY MOUTH EVERY DAY APPT REMINDER 07-06-2018 8:45 AM, Jonathan Jarquin Jr, MD levothyroxine 125 mcg tablet Take 1 tablet every morning on empty stomach metformin 500 mg tablet TAKE 2 TABLETS BY MOUTH TWICE A DAY Novolog Mix 70-30 FlexPen U-100 Insulin 100 unit/mL subcutaneous pen INJECT 40 UNITS SUBCUTANEOUSLY TWICE A DAY olmesartan 40 mg tablet TAKE 1 TABLET BY MOUTH EVERY DAY OneTouch Delica Lancets 30 gauge Take 1 each twice a day by miscell. route for 90 days. OneTouch Ultra Blue Test Strip USE TO CHECK BLOOD SUGAR TWICE A DAY tamsulosin 0.4 mg capsule TAKE 1 CAPSULE BY MOUTH EVERY DAY Medications Administered None recorded. Vitals Height Weight BMI Blood Pressure 6 ft 2 in 215 lbs 27.6 kg/m2 124/54 mm[Hg] Lab Results Date Name Specimen Result Interpretation Description Value Range Status Address Glucose, Fingerstick, Blood Blood Glucose: mg/dl 146 [facility] ([facility]) Hobby: [id number] Allergies Code Code System Name Reaction [...] Chronic Kidney Disease Stage 2 Active 04/06/2018 Mass of Colon Active 06/14/2018 Procedures Date Name Performed by 08/22/2008 Colonoscopy Information not available Intestinal Stricturoplasty Information not available Vaccine List Vaccine Type influenza, high dose seasonal 12/14/20160.5 mL 01/05/20180.5 mL pneumococcal conjugate PCV 13 01/18/20170.5 mL pneumococcal polysaccharide PPV23 01/03/20120.5 mL zoster 0.65 mL 0.65 mL zoster subunit 05/04/2018 Social History Smoking Status Never Smoker Past Encounters 07/14/2018 Type 2 Diabetes Mellitus; Mass of Colon; History of Partial Resection of Colon; Hospital Patient; Benign Hypertensive Renal Disease; Chronic Kidney Disease Stage 2 Jonathan Jarquin Jr, MD: [id number] [facility] [address], [place] [address], Ph. History of Present Illness TCM Provider Visit Reported By: Patient HPI: Timing: Date of admit:, Date of discharge:; 06/21-07/06/2018. Discharge Information: Discharge Diagnoses:, Discharged from: [facility], Discharged to: Home, Hospital Records (H&P, DC Summary, Transition of Care Document) reviewed and scanned? Yes; Partial colonectomy. Functional Status No difficulty following discharge instructions, Taking medications as prescribed, Does patient need help getting medications filled? no Review of Systems Comprehensive General Adult ROS Reported By: Patient Constitutional: Constitutional: no fever, no night sweats, no significant weight gain, no significant weight loss Cardiovascular: Cardiovascular: no chest pain Gastrointestinal: Gastrointestinal: no abdominal pain, no nausea, no vomiting, no constipation, normal appetite, no diarrhea, not vomiting blood, no dyspepsia Genitourinary: Genitourinary: no incontinence, no difficulty urinating, no hematuria, no increased frequency Endocrine: Endocrine: no fatigue Physical Exam General Adult Exam (male), Brief Abdominal Pain Exam Reported By: Patient Constitutional: General Appearance: healthy-appearing, well-nourished, well-developed, alert, oriented. Level of Distress: NAD Lungs: Auscultation: no wheezing, no rales/crackles. Lungs: clear to auscultation bilaterally Cardiovascular: Heart Auscultation: normal S1, normal S2, no murmurs Abdomen: Inspection and Palpation: soft, non-distended, no tenderness, bowel sounds 4 quadrants
--- OUTSIDE RECORDS SUMMARY | 2019-06-05 10:42 | XMS REPORT | Encounter Summary ---
Author Organization Unknown Address [address] [place] [address] Phone [phone] Care Team Providers Care Watch Train Assembler Name Role Phone Dr. Jonathan Jarquin 3 [phone] Jonathan Jarquin Jr, MD 3 [phone] oJse Robbins MD 111 [phone] Reason for Visit hyperlipidemia; hypertension; diabetes Instructions 1. Type 2 diabetes mellitus glucose, fingerstick, blood 2. Chronic kidney disease stage 2 3. Benign hypertensive renal disease Discussion Note: None recorded. Patient educational handouts: No information available. Plan of Care Reminders Provider Appointments Est Patient 10/13/2018 9:30AM Jonathan Jarquin Jr, MD Lab Glucose, Fingerstick, Blood 08/11/2018 [facility] ([facility]) [facility] Referral None recorded. Procedures None recorded. Surgeries [...] TAKE 1 TABLET BY MOUTH EVERY DAY levothyroxine 125 mcg tablet TAKE 1 TABLET(S) EVERY DAY BY ORAL ROUTE BEFORE MEALS FOR 90 DAYS. metformin 500 mg tablet TAKE 2 TABLETS [...] BMI Blood Pressure 6 ft 2 in 210 lbs 27 kg/m2 136/68 mm[Hg] Lab Results Date Name Specimen Result Interpretation Description Value Range Status Address Glucose, Fingerstick, Blood Blood Glucose: mg/dl 90 [facility] ([facility]) Hobby: [phone] Glucose, Fingerstick, Blood Blood Glucose: mg/dl 146 [facility] ([facility]) Hobby: [phone] Allergies Code Code System Name Reaction [...] History Smoking Status Never Smoker Past Encounters 08/11/2018 Type 2 Diabetes Mellitus; Chronic Kidney Disease Stage 2; Benign Hypertensive Renal Disease Jonathan Jarquin Jr, MD: [id number], [address] [address], Ph. 07/14/2018 Type 2 Diabetes Mellitus; Mass of Colon; History of Partial Resection of Colon; Hospital Patient; Benign Hypertensive Renal Disease; Chronic Kidney Disease Stage 2 Jonathan Jarquin Jr, MD: [id number], [address] [address], Ph. History of Present Illness Hypertension Reported By: Patient HPI: Severity: mild. Onset/Timing: gradual onset. Alleviating Factors: relieved with rest, medication. Self Care: not under emotional stress, blood pressure goal: 130/80. Associated Symptoms: no shortness of breath, no fatigue, no decline in exercise capacity Diabetes F/U Reported By: Patient HPI: Labs: last A1C result: 7.0. Context: no side effects from medications. Associated Symptoms: no dizziness, no sweats, no headaches, no confusion, no increased thirst, no increased appetite, no increased urination, no blurred vision, no numbness of feet Notes: Endorses medication compliance.
Hyperlipidemia Reported By: Patient HPI: Type of hyperlipidemia: combined, hypercholesterolemia. Duration: chronic. Current Therapy: currently taking: atorvastatin, last LDL level: 63 date: 63. Compliance: compliant. Complications: no coronary artery disease. Risk Factors: diabetes, hypertension Review of Systems Comprehensive General Adult ROS, Diabetes F/U ROS Reported By: Patient Constitutional: Constitutional: no significant weight gain, no significant weight loss Cardiovascular: Cardiovascular: no chest pain, no shortness of breath when walking Respiratory: Respiratory: no cough, no wheezing, no shortness of breath Endocrine: Endocrine: no fatigue Physical Exam General Adult Exam (male), Cardiology Exam, Diabetes, Diabetic Foot Exam Reported By: Patient Constitutional: General Appearance: well-nourished, well-developed, appears stated age. Level of Distress: NAD Lungs: Auscultation: good air movement, CTA except as noted, no wheezing, no rales/crackles, no rhonchi Cardiovascular: Heart Auscultation: RRR, normal S1, no rubs, no gallops, physiologically split S2, no click. Pulses including femoral / pedal: full and equal in all extremities except if noted. Systolic Murmur: not heard. Diastolic Murmur: not heard Musculoskeletal:: Extremities: no cyanosis, no edema, no peripheral signs of emboli Skin: Inspection and palpation: warm and dry Back: Thoracolumbar Appearance: no chest wall tenderness
--- OUTSIDE RECORDS SUMMARY | 2019-06-05 10:43 | XMS REPORT | Encounter Summary ---
Author Organization Unknown Address [address] [place] [address] Phone [phone] Care Team Providers Care Mechanical Service Specialist Name Role Phone Dr. Jonathan Jarquin 3 [phone] Jonathan Jarquin Jr, MD 3 [phone] Jose Robbins MD 111 [phone] Reason for Visit Advance Care Plan; AW Annual Wellness Visit Male (VFP); diabetes Instructions 1. Adult health examination 2. Advance directive discussed with patient advance care planning: care instructions 3. Depression screening 4. Body mass index 25-29 - overweight learning about healthy weight 5. Overweight 6. Type 2 diabetes mellitus glucose, fingerstick, blood HbA1c (hemoglobin A1c), blood microalbumin/creatinine, mass ratio, urine diabetic ophthalmology referral metformin 500 mg tablet Novolog Mix 70-30 FlexPen U-100 Insulin 100 unit/mL subcutaneous pen 7. Proteinuric nephropathy due to diabetes mellitus 8. 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 Chronic kidney disease due to type 2 diabetes mellitus 10. Chronic kidney disease stage 2 11. Hyperlipidemia high cholesterol: care instructions lipid panel, serum atorvastatin 10 mg tablet 12. Benign hypertensive renal disease CMP, serum or plasma CBC w/ auto diff urinalysis, dipstick electrocardiogram diltiazem CD 240 mg capsule,extended release 24 hr hydrochlorothiazide 25 mg tablet olmesartan 40 mg tablet 13. Hypothyroidism TSH, serum or plasma T4, free, serum T3, free, serum or plasma levothyroxine 125 mcg tablet 14. Lower urinary tract symptoms due to benign prostatic hypertrophy tamsulosin 0.4 mg capsule 15. Electrocardiogram abnormal 16. Left ventricular hypertrophy US, echocardiogram, transthoracic, complete, w/ color flow 17. Right bundle branch block 18. Atherosclerosis of aorta 19. Pre-surgery evaluation Discussion Note: None recorded. Plan of Care [...] Annual Wellness folder. Screening Recommendations 1. Vaccines Pneumonia: Influenza: 2. Colorectal Cancer Screenin. Annual Prostate Screening 4. Annual Depression Screening 5. Annual Alcohol Screening 6. Annual Fall Risk Screening 7. Annual Health Risk Assessment Patient Instructions on Filing Advance Directives Be sure that you have easy access to your paperwork for your medical power of rubber grinder and advanced directives. Be sure that the designated person as well as important family members have copies of those forms as well. Please have contact information of your designee readily available. In the event of hospitalization, please bring those important documents with you for reference. Reminders Provider Appointments Est Patient 04/13/2019 9:00AM Jonathan Jarquin Jr, MD Lab Glucose, Fingerstick, Blood 04/02/2019 [place] HbA1C (Hemoglobin a1C), Blood 04/02/2019 [facility] Microalbumin/creatinine, Mass Ratio, Urine 04/02/2019 [facility] CMP, Serum or Plasma 04/02/2019 [facility] CBC W/ Auto Diff 04/02/2019 [facility] Lipid Panel, Serum 04/02/2019 [facility] TSH, Serum or Plasma 04/02/2019 [facility] T4, Free, Serum 04/02/2019 [facility] T3, Free, Serum or Plasma 04/02/2019 [facility] Urinalysis, Dipstick 04/02/2019 [place]wis Referral Diabetic Ophthalmology Referral 04/02/2019 Susan Lopez MD Procedures None recorded. Surgeries None recorded. Imaging Electrocardiogram 04/02/2019 [place] US, Echocardiogram, Transthoracic, Complete, W/ Color Flow 04/02/2019 lewis Medications Name Start Date atorvastatin 10 mg tablet Take 1 tablet every day by oral route. BD Ultra-Fine Original Pen Needle 29 gauge x 1/2" clomiphene citrate 50 mg tablet Take 0.5 tablets every day by oral route. diltiazem CD 240 mg capsule,extended release 24 hr Take 1 capsule every day by oral route. Ecotrin Low Strength 81 mg tablet,enteric coated Take 1 tablet every day by oral route. hydrochlorothiazide 25 mg tablet Take 1 tablet every day by oral route for 90 days. levothyroxine 125 mcg tablet Take 1 tablet every day by oral route in the morning. metformin 500 mg tablet Take 2 tablets twice a day by oral route for 90 days. Novolog Mix 70-30 FlexPen U-100 Insulin 100 unit/mL subcutaneous pen Inject 40 units twice a day by subcutaneous route for 90 days. 90 day supply approved olmesartan 40 mg tablet Take 1 tablet every day by oral route for 90 days. OneTouch Delica Plus Lancet 30 gauge Take 1 each twice a day by miscell. route for 90 days. Big Switch NetworksTouch Ultra Blue Test Strip Take 1 strip twice a day by miscell. route. tamsulosin 0.4 mg capsule Take 2 capsules every day by oral route. Medications Administered None recorded. Vitals Height Weight BMI Blood Pressure 6 ft 2 in 222 lbs 28.5 kg/m2 (1) 152/76 mm[Hg] (2) 132/64 mm[Hg] Results Lab Results Date Name Specimen Result Interpretation Description Value Range Status Address 04/02/2019 Electrocardiogram Rate & Rhythm sinus regular _hou_hobby: [address] [address], [place] Qrs _hou_[facility]: [address] [address], [place] Interval _[facility]hobby: [address] [address], [place] QRS Duration _u_hobby: [address] [address], [place] QT Interval _u_hobby: [address] [address], [place] Allergies Code Code System Name Reaction Severity Status Onset NKDA Problems Name Status Onset Date Source 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 01/17/2017 Age-related Nuclear Cataract of Left Eye Active 01/17/2017 Hypothyroidism Active 01/18/2017 Proteinuric Nephropathy Due to Diabetes Mellitus Active 01/18/2017 Benign Hypertensive Renal Disease Active 01/18/2017 Nocturia Active 01/18/2017 Chronic Kidney Disease Due to Type 2 Diabetes Mellitus Active 01/18/2017 Lower Urinary Tract Symptoms Due to Benign Prostatic Hypertrophy Active 01/18/2017 Hyperlipidemia Active 06/02/2017 Type 2 Diabetes Mellitus Active 07/06/2017 Retinopathy Due to Diabetes Mellitus Active 11/14/2017 Chronic Kidney Disease Stage 2 Active 04/06/2018 Mass of Colon Active 06/14/2018 Left Ventricular Hypertrophy Active 04/02/2019 Procedures Date Name Performed by Colonoscopic Polypectomy Information not available Colonoscopy Information not available Intestinal Stricturoplasty Information not available 04/02/2019 Electrocardiogram [place] [address] [facility] [address] [place] [address] (Work [address]) 04/02/2019 US, Echocardiogram, Transthoracic, Complete, W/ Color Flow [place] [address] [facility] [address] [place] [id number] (Work Place) Vaccine List Vaccine Type influenza, high dose seasonal 12/14/20160.5 mL 01/05/20180.5 mL 01/12/20190.5 mL pneumococcal conjugate PCV 13 01/18/20170.5 mL pneumococcal polysaccharide PPV23 01/03/20120.5 mL 01/12/20190.5 mL zoster live 0.65 mL 0.65 mL zoster recombinant 05/04/2018 Social History Tobacco Smoking Status Never Smoker Past Encounters 04/02/2019 Adult Health Examination; Advance Directive Discussed with Patient; Depression Screening; Body Mass Index 25-29 - Overweight; Overweight; Type 2 Diabetes Mellitus; Proteinuric Nephropathy Due to Diabetes Mellitus; Moderate Nonproliferative Retinopathy Due to Type 2 Diabetes Mellitus; Chronic Kidney Disease Due to Type 2 Diabetes Mellitus; Chronic Kidney Disease Stage 2; Hyperlipidemia; Benign Hypertensive Renal Disease; Hypothyroidism; Lower Urinary Tract Symptoms Due to Benign Prostatic Hypertrophy; Electrocardiogram Abnormal; Left Ventricular Hypertrophy; Right Bundle Branch Block; Atherosclerosis of Aorta; Pre-surgery Evaluation Jonathan Jarquin Jr, MD: [address] [facility] [address], [place] [address], Ph. History of Present Illness Diabetes F/U Reported By: Patient HPI: Labs: last A1C result: . Context: no side effects from medications. Associated Symptoms: no dizziness, no sweats, no headaches, no confusion, no increased thirst, no increased appetite, no increased urination, no blurred vision, no numbness of feet Notes: Endorses medication compliance. Mini Cog Reported By: Patient Functional Ability: Personal/Social/ Draw a clock and write in the numbers in the correct place, and set the time to 10 minutes after 11 o'clock was completed correctly? Yes, 3 word recall: Your nurse or doctor will ask you to remember 3 words. In 5 minutes, they will ask you to repeat them. Patient recalled 3 words Opioid Use Assessment Reported By: Patient Opioid Use Assessment:: Current Use of Opioids : no use of opioids (no further questions required) Note:I'd like to talk about what is ahead with your illness and do some thinking in advance about what is important to you so I can make sure we provide you with the care you want-is that okay? {{Yes|No}} Review of Systems Comprehensive General Adult ROS, Diabetes F/U ROS Reported By: Patient Constitutional: Constitutional: no fever, no significant weight gain, no significant weight loss, no exercise intolerance Eyes: Eyes: no vision change Cardiovascular: Cardiovascular: no chest pain, no palpitations, no lightheadedness, no SOB Respiratory: Respiratory: no wheezing, no shortness of breath Gastrointestinal: Gastrointestinal: no abdominal pain, no nausea, no vomiting, no constipation, normal appetite, no diarrhea Genitourinary: Genitourinary: no difficulty urinating, no increased frequency Musculoskeletal: Musculoskeletal: no muscle weakness, no arthralgias/joint pain Integumentary: Skin: no rashes, no laceration Neurologic: Neurologic: no weakness, no numbness, no dizziness Endocrine: Endocrine: no fatigue Extremities: Extremities: no edema, no ulcers Physical Exam Cardiology Exam, Diabetes, Diabetic Foot Exam Reported By: Patient Constitutional: General Appearance: well-nourished, well-developed, appears stated age. Level of Distress: comfortable Lungs: Respiratory Effort: unlabored. Chest Exam: no chest wall tenderness. Auscultation: clear, no wheezing, no rales, no rhonchi Cardiovascular: Rate And Rhythm: regular. Heart Sounds: normal S1, physiologically split S2, no rub, no gallop, no click. Systolic Murmur: not heard. Diastolic Murmur: not heard. Extremities: no cyanosis, no edema, no peripheral signs of emboli Peripheral Pulses: Pulses: full and equal in all extremities except if noted Skin: Inspection and Palpation: warm and dry
--- OUTSIDE RECORDS SUMMARY | 2019-06-05 10:43 | XMS REPORT | Encounter Summary ---
Author Organization Unknown Address [address] [place] [address] Phone [phone] Care Team Providers Care Engineering Program Analyst Name Role Phone Dr. Jonathan Jarquin 3 [phone] Jonathan Jarquin Jr, MD 3 [phone] Jose Robbins MD 111 [phone] Reason for Visit hypertension; diabetes Instructions 1. Malignant tumor of prostate 2. Benign hypertensive renal disease 3. Chronic kidney disease stage 2 4. Type 2 diabetes mellitus Discussion Note: None recorded. Patient educational handouts: No information available. Plan of Care Reminders Provider Appointments Est Patient 07/03/2019 8:30AM Jonathan Jarquin Jr, MD Lab None recorded. Referral None recorded. Procedures None recorded. Surgeries None recorded. Imaging None recorded. Medications Name Start Date atorvastatin 10 mg tablet Take 1 tablet every day by oral route. BD Ultra-Fine Original Pen Needle 29 gauge x 1/2" USE DIRECTED clomiphene citrate 50 mg tablet Take 0.5 [...] 90 days. OneTouch Ultra Blue Test Strip Take 1 strip twice a day by miscell. route. tamsulosin 0.4 mg capsule Take 2 capsules every day by oral route. Medications Administered None recorded. Vitals Height Weight BMI Blood Pressure 6 ft 2 in 224 lbs 28.8 kg/m2 (1) 150/70 mm[Hg] (2) 124/74 mm[Hg] Results Lab Results Date Name Specimen Result Interpretation Description Value Range Status Address 04/02/2019 Microalbumin/creatinine, Mass Ratio, Urine Microalbumin Random Urine 12 ug/mL [facility]: [facility] Div[address] Knowles [place] Normal Creatinine Random Urine 87.1 mg/dL 20.0-370.0 mg/dL [facility]: [facility] Divya Knowles [place] Normal Microalbumin/creatinine (Random Urine) Ratio Calculated 14 mcg/mg creat [facility] Laboratory: [address] [place] 04/02/2019 CBC W/ Auto Diff Wbc 6.51 x10*3/L 4.23-9.07 x10*3/L [facility]: [facility] Divya Knowles [place] Low Rbc 4.12 10*12/L 4.63-6.08 10*12/L [facility]: [address] [place] Low Hemoglobin 11.80 g/dL 13.70-17.50 g/dL [facility]: [address] [place] Low Hematocrit 35.3 % 40.1-51.0 % [facility]: [address] Know[address] [place] Mcv 85.7 fL 80.0-100.0 fL [facility] [address] [facility] M[facility] 28.6 pg 25.7-32.2 pg [facility]: [address] [place] Mchc 33.4 g/dL 32.3-36.5 g/dL [facility]: [address] [place] RDW-SD 39.3 fL 35.1-43.9 fL [facility] [address] [facility] Platelet Count 206.0 k/uL 163.0-337.0 k/uL [facility] Mpv 10.6 fL 7.5-11.5 fL [facility]: [address] [place] Neut% 49.4 % 34.0-67.9 % [facility]: [address] [place] Lymph% 36.9 % 21.8-53.1 % [facility]: [address] [place] Mon% 10.6 % 5.3-12.2 % [facility]: [address] [place] Eos% 2.8 % 0.8-7.0 % [facility]: [address] [place] Baso% 0.3 % 0.2-1.2 % [facility]: [address] [place] Neut# 3.2 x10*3/L 1.8-5.4 x10*3/L [facility]: [address] [place] Lymph# 2.4 x10*3/L 1.3-3.6 x10*3/L [facility]: [address] [place] Mon# 0.7 x10*3/L 0.3-0.8 x10*3/L [facility]: [address] [place] Eos# 0.18 x10*3/L 0.04-0.54 x10*3/L [facility]: [address] [place] Baso# 0.02 x10*3/L 0.01-0.08 x10*3/L [facility]: Benito Knowles [place] 04/02/2019 CMP, Serum or Plasma Alt 34 U/L 0-55 U/L [facility]: [address] Div[address] Knowles [place] Ast 19 U/L 5-34 U/L [facility]: [address] Know[address] [place] Bun 16.4 mg/dL 8.4-25.0 mg/dL [facility]: [address] [place] Alk Phos 91 unit/L 40-150 unit/L [facility]: [address], [place] High Glucose 120 mg/dL 70-99 mg/dL [facility]: [address], [place] Albumin 3.7 g/dL 3.4-5.1 g/dL [facility]: [address], [place] Creatinine 1.09 mg/dL 0.72-1.25 mg/dL [facility]: [address], [place] eGFR Non- >60 mL/min/1.73m2 [facility]: [address], [place] Total Bilirubin 0.4 mg/dL 0.2-1.2 mg/dL [facility]: [address] Know[address], [place] eGFR - >60 mL/min/1.73m2 [facility]: [address], [place] Sodium 136 mEq/L 135-145 mEq/L [facility] [address] [facility] Potassium 4.0 mEq/L 3.5-5.1 mEq/L [facility] [address] [facility] Chloride 103 mmol/L 98-110 mmol/L [facility]: [address], [place] Total Protein 6.5 g/dL 6.1-8.2 g/dL [facility]: [address], [place] Low Calcium 8.9 mg/dL 9.0-10.2 mg/dL [facility]: [address], [place] Co2 27.8 mmol/L 20.0-32.0 mmol/L [facility]: [address] [place] Anion Gap 5 calc [facility]: [address] [place] 04/02/2019 Lipid Panel, Serum Hdl 45 mg/dL [facility]: [address] [place] Triglyceride 61 mg/dL 0-150 mg/dL [facility]: [address] [place] VLDL (Calculated) 12 mg/dL [facility]: [address] cholesterol/HDL Ratio 2.3 mg/dL [facility]: [address] non-HDL Cholesterol (Calculated) 59 mg/dL 0-160 mg/dL [facility]: [address] Cholesterol 104 mg/dL 0-200 mg/dL [facility]: [address] [place] [address] LDL (Calculated) 47 mg/dL 0-130 mg/dL [facility]: [address] [address], [place] 04/02/2019 T3, Free, Serum or Plasma T3 Free 3.51 pg/mL 1.71-3.71 pg/mL [facility]: [facility] [address] [address], [place] 04/02/2019 T4, Free, Serum T4 Free 1.25 NG/dL 0.70-1.48 NG/dL [facility]: [address] [place] [address], [place] 04/02/2019 TSH, Serum or Plasma Low Tsh 0.350-4.940 uIU/mL [facility]: [facility] [address] [address], [place] 04/02/2019 HbA1C (Hemoglobin a1C), Blood High A1C W/eag 7.5 % 1.0-5.7 % [facility]: [address] Average Blood Glucose 169 mg/dL [facility]: [address] [address], [place] 04/02/2019 Glucose, Fingerstick, Blood Blood Glucose: mg/dl 152 [facility]obby: [address], [place] 04/02/2019 Urinalysis, Dipstick Color Color yellow [facility]: [address], [place] Color Appearance clear [facility]: [address], [place] Color Glucose negative [facility]obby: [address], [place] Color Bilirubin negative [facility]obby: [address], [place] Color Ketones negative [facility]obby: [address], [place] Color Specific [place] 1.020 [facility] Hobby: [address], [place] Color Blood negative [facility]obby: [address], [place] Color PH 7.0 [facility]obby: [address], [place] Color Protein negative [facility]: [address], [place] Color Urobilinogen 0.2 [facility]obby: [address], [place] Color Nitrites negative [facility]obby: [address], [place] Color Leukocytes negative [facility]obby: [address], [place] 04/02/2019 Electrocardiogram Rate & Rhythm sinus regular [facility] Hobby: [address], [place] Qrs [facility] Hobby: [address], [place] Interval [facility] - Hobby: [address], [place] QRS Duration [facility] - [facility]obby: [address], [place] QT Interval [facility] - Hobby: [address], [place] Allergies Code Code System Name Reaction Severity [...] Active 06/14/2018 Left Ventricular Hypertrophy Active 04/02/2019 Malignant Tumor of Prostate Active 04/23/2019 Procedures Date Name Performed by 08/22/2008 Colonoscopy Information not available Colonoscopic Polypectomy Information not available Colonoscopy Information not available Intestinal Stricturoplasty Information not available 04/02/2019 Electrocardiogram [facility] [address] [place] [address] (Work [address]) 04/02/2019 US, Echocardiogram, Transthoracic, Complete, W/ Color Flow [facility] [address] [place] [address] (Work [address]) Vaccine List Vaccine Type influenza, high dose seasonal 12/14/20160.5 mL 01/05/20180.5 mL 01/12/20190.5 mL pneumococcal conjugate PCV 13 01/18/20170.5 mL pneumococcal polysaccharide PPV23 01/03/20120.5 mL 01/12/20190.5 mL zoster live 0.65 mL 0.65 mL zoster recombinant 05/04/2018 Social History Tobacco Smoking Status Never Smoker Past Encounters 04/23/2019 Malignant Tumor of Prostate; Benign Hypertensive Renal Disease; Chronic Kidney Disease Stage 2; Type 2 Diabetes Mellitus Jonathan Jarquin Jr, MD: [address], [place] [address], Ph. 04/02/2019 Adult Health Examination; Advance Directive Discussed [...] Pre-surgery Evaluation Jonathan Jarquin Jr, MD: [address], [address], [place] [address], Ph. History of Present Illness Diabetes F/U Reported By: Patient HPI: Labs: last A1C result: 7.5. Context: no side effects from medications. Associated Symptoms: no dizziness, no sweats, no headaches, no confusion, no increased thirst, no increased appetite, no increased urination, no blurred vision, no numbness of feet Notes: Endorses medication compliance.
Hypertension Reported By: Patient HPI: Severity: mild, intense. Onset/Timing: gradual onset. Alleviating Factors: relieved with rest, medication. Self Care: not under emotional stress, blood pressure goal: 130/80. Associated Symptoms: no shortness of breath, no fatigue, no decline in exercise capacity Hyperlipidemia Reported By: Patient HPI: Type of hyperlipidemia: combined, hypercholesterolemia. Duration: chronic. Current Therapy: currently taking: atorvastatin, last LDL level: 47 date: 47. Compliance: compliant. Complications: no coronary artery disease. Risk Factors: diabetes, hypertension Hypertension Reported By: Patient Note:Patient presents for routine medication refill . Currently without new complaint. Review of Systems Comprehensive General Adult ROS, Diabetes F/U ROS Reported By: Patient Constitutional: Constitutional: no fever, no significant weight gain, no significant weight loss, no exercise intolerance Eyes: Eyes: no vision change Cardiovascular: Cardiovascular: no chest pain, no shortness of breath when walking, no palpitations, no lightheadedness, no SOB Respiratory: Respiratory: no cough, no wheezing, no shortness of breath Gastrointestinal: Gastrointestinal: no abdominal pain, no nausea, no vomiting, no constipation, normal appetite, no diarrhea Genitourinary: Genitourinary: no difficulty urinating, no increased frequency Musculoskeletal: Musculoskeletal: no muscle weakness, no arthralgias/joint pain Integumentary: Skin: no rashes, no laceration Neurologic: Neurologic: no weakness, no numbness, no dizziness Endocrine: Endocrine: no fatigue Extremities: Extremities: no edema, no ulcers Physical Exam General Adult Exam (male), Neurology [...]
--- OUTSIDE RECORDS SUMMARY | 2019-06-05 10:43 | XMS REPORT | Encounter Summary ---
Author Organization Unknown Address [address] [place] [address] Phone [phone] Care Team Providers Care Mergers And Acquisitions Consultant Name Role Phone Dr. Jonathan Jarquin 3 [phone] Jonathan Jarquin Jr, MD 3 [phone] Jose Robbins MD 111 [phone] Reason for Visit hyperlipidemia; hypertension; diabetes Instructions 1. Type 2 diabetes mellitus BD Ultra-Fine Original Pen Needle 29 gauge x 1/2" metformin 500 mg tablet Novolog Mix 70-30 FlexPen U-100 Insulin 100 unit/mL subcutaneous pen diabetic ophthalmology referral glucose, fingerstick, blood 2. Benign hypertensive renal disease diltiazem CD 240 mg capsule,extended release 24 hr hydrochlorothiazide 25 mg tablet olmesartan 40 mg tablet olmesartan 40 mg tablet 3. Chronic kidney disease stage 2 4. Hyperlipidemia atorvastatin 10 mg tablet 5. Hypothyroidism levothyroxine 125 mcg tablet 6. Screening for cardiovascular system disease ankle brachial index - Peripheral Artery Disease Ratio (QuantaFlo) 7. Influenza vaccination Fluzone High-Dose 2019-20 (PF) 180 mcg/0.5 mL intramuscular syringe 8. Immunization Pneumovax 23 25 mcg/0.5 mL injection syringe 9. Lower urinary tract symptoms due to benign prostatic hypertrophy urology referral tamsulosin 0.4 mg capsule 10. Raised prostate specific antigen Discussion Note: None recorded. Patient educational handouts: No information available. Plan of Care Reminders Provider Appointments Est Patient 04/13/2019 9:00AM Jonathan Jarquin Jr, MD Lab Glucose, Fingerstick, Blood 01/12/2019 [facility] Referral Urology Referral 01/12/2019 Diabetic Ophthalmology Referral 01/12/2019 Susan Lopez MD Procedures None recorded. Surgeries None recorded. Imaging Ankle Brachial Index 01/12/2019 [facility] Medications Name Start Date atorvastatin 10 mg tablet Take 1 tablet every day by oral route. BD Ultra-Fine Original Pen Needle 29 gauge x 1/2" clomiphene citrate 50 mg tablet Take 0.5 tablets every day by oral route. diltiazem CD 240 mg capsule,extended release 24 hr Take 1 capsule every day by oral route for 90 days. Ecotrin Low Strength 81 mg tablet,enteric coated Take 1 tablet every day by oral route. hydrochlorothiazide 25 mg tablet Take 1 tablet every day by oral route for 90 days. levothyroxine 125 mcg tablet FOR DIRECTIONS ON HOW TO TAKE THIS MEDICINE, READ THE ENCLOSED MEDICATION INFORMATION FORM metformin 500 mg tablet Take 2 tablets twice a day by oral route for 90 days. Novolog Mix 70-30 FlexPen U-100 Insulin 100 unit/mL subcutaneous pen Inject 40 units twice a day by subcutaneous route for 90 days. 90 day supply approved olmesartan 40 mg tablet Take 1 tablet every day by oral route for 30 days. OneTouch Delica Plus Lancet 30 gauge Take 1 each twice a day by miscell. route for 90 days. OneTouch Ultra Blue Test Strip Take 1 strip twice a day by miscell. route. tamsulosin 0.4 mg capsule Take 1 capsule every day by oral route for 90 days. Medications Administered None recorded. Vitals Height Weight BMI Blood Pressure 6 ft 2 in 223.8 lbs 28.7 kg/m2 164/70 mm[Hg] Results Lab Results Date Name Specimen Result Interpretation Description Value Range Status Address Glucose, Fingerstick, Blood Blood Glucose: mg/dl 81 [facility]: [address] Ankle Brachial Index No observation recorded. [facility]: [address] Allergies Code Code System Name Reaction [...] not available Colonoscopic Polypectomy Information not available Intestinal Stricturoplasty Information not available 01/12/2019 [facility] [facility] [address] [place] [address] (Work Place) Vaccine List Vaccine Type influenza, high dose seasonal 12/14/20160.5 mL 01/05/20180.5 mL 01/12/20190.5 mL pneumococcal conjugate PCV 13 01/18/20170.5 mL pneumococcal polysaccharide PPV23 01/03/20120.5 mL 01/12/20190.5 mL zoster 0.65 mL 0.65 mL zoster subunit 05/04/2018 Social History Tobacco Smoking Status Never Smoker Past Encounters 01/12/2019 Type 2 Diabetes Mellitus; Benign Hypertensive Renal Disease; Chronic Kidney Disease Stage 2; Hyperlipidemia; Hypothyroidism; Screening for Cardiovascular System Disease; Influenza Vaccination; Immunization; Lower Urinary Tract Symptoms Due to Benign Prostatic Hypertrophy; Raised Prostate Specific Antigen Jonathan Jarquin Jr, MD: [address] [facility], [place] [address], Ph. History of Present Illness Diabetes F/U Reported By: Patient HPI: Labs: last A1C result: 7.0. Context: no side effects from medications. Associated Symptoms: no dizziness, no sweats, no headaches, no confusion, no increased thirst, no increased appetite, no increased urination, no blurred vision, no numbness of feet Notes: Endorses medication compliance.
Hypertension Reported By: Patient HPI: Severity: intense. Onset/Timing: gradual onset. Alleviating Factors: relieved with rest, medication. Self Care: not under emotional stress, blood pressure goal: 130/80. Associated Symptoms: no shortness of breath, no fatigue, no decline in exercise capacity Hyperlipidemia Reported By: Patient HPI: Type of hyperlipidemia: combined, hypercholesterolemia. Duration: chronic. Current Therapy: currently taking: atorvastatin, last LDL level: 57 date: 57. Compliance: compliant. Complications: no coronary artery disease. Risk Factors: diabetes, hypertension Note:Patient presents for routine medication refill . [...] General Appearance: well-nourished. Ambulation: ambulating normally Psychiatric: Insight: poor judgement. Mental Status: normal mood, normal affect, current events, past history. Orientation: to time, to place, to person. Memory: recent memory normal, remote memory normal Head: Head: normocephalic Mental Status: Language: has spontaneous speech
--- OUTSIDE RECORDS SUMMARY | 2019-06-05 10:43 | XMS REPORT | Encounter Summary ---
Author Organization Unknown Address [address] [place] [address] Phone [phone] Care Team Providers Care Junior Architect Name Role Phone Dr. Jonathan Jarquin 3 [phone] Jonathan Jarquin Jr, MD 3 [phone] Jose Robbins MD 111 [phone] Reason for Visit hyperlipidemia; hypertension; diabetes Instructions 1. Type 2 diabetes mellitus glucose, fingerstick, blood HbA1c (hemoglobin A1c), blood microalbumin:creatinine ratio, urine 2. Benign hypertensive renal disease CMP, serum or plasma CBC w/ auto diff 3. Chronic kidney disease stage 2 urinalysis, dipstick 4. Hyperlipidemia lipid panel, serum 5. Raised prostate specific antigen Discussion Note: None recorded. Patient educational handouts: No information available. Plan of Care Reminders Provider Appointments Est Patient 01/12/2019 9:00AM Jonathan Jarquin Jr, MD Return to Office on or around 01/13/2019 Jonathan Jarquin Jr, MD Lab Glucose, Fingerstick, Blood 10/13/2018 [facility]) Hobby HbA1C (Hemoglobin a1C), Blood 10/13/2018 [facility] Microalbumin:creatinine Ratio, Urine 10/13/2018 [facility] CMP, Serum or Plasma 10/13/2018 [facility] Lipid Panel, Serum 10/13/2018 [facility] CBC W/ Auto Diff 10/13/2018 [facility] Urinalysis, Dipstick 10/13/2018 [facility]) Hobby Referral None recorded. Procedures None recorded. Surgeries None recorded. Imaging None recorded. Medications Name Start Date atorvastatin 10 mg tablet Take 1 tablet every day by oral route. BD Ultra-Fine Mini Pen Needle 31 gauge x 3/16" USE TWICE A DAY OR DIRECTED. clomiphene citrate 50 mg tablet Take 0.5 [...] 2 TABLETS BY MOUTH TWICE A DAY 90 DAY SUPPLY APPROVED, MUST KEEP APPT FOR 10/13/18 Novolog Mix 70-30 FlexPen U-100 Insulin 100 unit/mL subcutaneous pen INJECT 40 UNITS SUBCUTANEOUSLY TWICE A DAY olmesartan 40 mg tablet TAKE 1 TABLET BY MOUTH EVERY DAY [facility] DelSoundFit Lancets 30 gauge Take 1 each twice a day by miscell. route for 90 days. [employer] Ultra Blue Test Strip USE TO CHECK BLOOD SUGAR TWICE A DAY tamsulosin 0.4 mg capsule TAKE 1 CAPSULE DAILY Medications Administered None recorded. Vitals Height Weight BMI Blood Pressure 6 ft 2 in 216 lbs 27.7 kg/m2 (1) 152/72 mm[Hg] (2) 140/62 mm[Hg] Lab Results None recorded. Allergies Code Code System Name Reaction Severity [...] History Smoking Status Never Smoker Past Encounters 10/13/2018 Type 2 Diabetes Mellitus; Benign Hypertensive Renal Disease; Chronic Kidney Disease Stage 2; Hyperlipidemia; Raised Prostate Specific Antigen Jonathan Jarquin Jr, MD: [address] [facility], [address], [place] [address], Ph. History of Present Illness Hypertension Reported [...]
--- OUTSIDE RECORDS SUMMARY | 2019-06-05 10:43 | XMS REPORT | Encounter Summary ---
Author Organization Unknown Address [address] [place] [address] Phone [phone] Care Team Providers Care Cinder Pitman Name Role Phone Dr. Jonathan Jarquin 3 [phone] Jonathan Jarquin Jr, MD 3 [phone] Jose Robbins MD 111 [phone] Reason for Visit hypothyroidism; hyperlipidemia; URI; hypertension; diabetes Instructions 1. Type 2 diabetes mellitus glucose, fingerstick, blood 2. Benign hypertensive renal disease 3. Chronic kidney disease stage 2 4. Upper respiratory infection rapid flu (A+B) Tylenol-Codeine #3 300 mg-30 mg tablet 5. Influenza influenza (flu): care instructions oseltamivir 75 mg capsule 6. Influenza vaccination Discussion Note: None recorded. Plan of Care Reminders Provider Appointments Est Patient 04/13/2019 9:00AM Jonathan Jarquin Jr, MD Lab Rapid Flu (A+B) 02/07/2019 [facility] Glucose, Fingerstick, Blood 02/07/2019 [facility] Referral None recorded. Procedures None recorded. Surgeries None recorded. Imaging None recorded. Medications Name Start Date atorvastatin 10 mg tablet Take 1 tablet every day by oral route. BD Ultra-Fine Original Pen Needle 29 gauge x 1/2" clomiphene citrate 50 mg tablet Take 0.5 tablets every day by oral route. diltiazem CD 240 mg capsule,extended release 24 hr TAKE 1 CAPSULE EVERY DAY Ecotrin Low Strength 81 mg tablet,enteric coated Take 1 tablet every day by oral route. hydrochlorothiazide 25 mg tablet Take 1 tablet every day by oral route for 90 days. levothyroxine 125 mcg tablet take 1 tab by mouth once daily every morning before breakfast. metformin 500 mg tablet Take 2 tablets [...] strip twice a day by miscell. route. oseltamivir 75 mg capsule Take 1 capsule twice a day by oral route for 5 days. tamsulosin 0.4 mg capsule TAKE 1 CAPSULE DAILY Tylenol-Codeine #3 300 mg-30 mg tablet Take 1 tablet every 8 hours by oral route for 7 days. Medications Administered None recorded. Vitals Height Weight Blood Pressure 6 ft 2 in 130/68 mm[Hg] Results Lab Results Date Name Specimen Result Interpretation Description Value Range Status Address Glucose, Fingerstick, Blood Blood Glucose: mg/dl 81 [facility]: [address] Ankle Brachial Index No observation recorded. [facility]: [address] Allergies Code Code System Name Reaction [...] Information not available 01/12/2019 Ankle Brachial Index [facility] [address] [address] (Work Place) Vaccine List Vaccine Type influenza, high dose seasonal 12/14/20160.5 mL 01/05/20180.5 mL 01/12/20190.5 mL pneumococcal conjugate PCV 13 01/18/20170.5 mL pneumococcal polysaccharide PPV23 01/03/20120.5 mL 01/12/20190.5 mL zoster 0.65 mL 0.65 mL zoster subunit 05/04/2018 Social History Tobacco Smoking Status Never Smoker Past Encounters 02/07/2019 Type 2 Diabetes Mellitus; Benign Hypertensive Renal Disease; Chronic Kidney Disease Stage 2; Upper Respiratory Infection; Influenza; Influenza Vaccination Jonathan Jarquin Jr, MD: [address], [address], [place] [address], Ph. 01/12/2019 Type 2 Diabetes Mellitus; Benign Hypertensive Renal Disease; Chronic Kidney Disease Stage 2; Hyperlipidemia; Hypothyroidism; Screening for Cardiovascular System Disease; Influenza Vaccination; Immunization; Lower Urinary Tract Symptoms Due to Benign Prostatic Hypertrophy; Raised Prostate Specific Antigen Jonathan Jarquin Jr, MD: [address], [address], [place] [address], Ph. History of Present Illness Diabetes F/U [...] no fatigue, no decline in exercise capacity Upper Respiratory Symptoms Reported By: Patient Hyperlipidemia Reported By: Patient HPI: Type of hyperlipidemia: combined, hypercholesterolemia. Duration: chronic. Current Therapy: currently taking: atorvastatin, last LDL level: 57 date: 57. Compliance: compliant. Complications: no coronary artery disease. Risk Factors: diabetes, hypertension URI Reported By: Patient Upper Respiratory Symptoms: Onset/Timing: gradual. Duration: constant. Location: head, throat. Quality: no sore throat, nasal congestion/discharge, dry cough. Severity: moderate. Context: no sick contacts, no foreign travel. Associated Symptoms: no fever, no chills, no shortness of breath, no wheezing, no significant weight loss, no diarrhea, no nausea Note:Patient presents for routine medication refill . Currently without new complaint. Review of Systems Comprehensive General Adult ROS, Diabetes F/U ROS Reported By: Patient Constitutional: Constitutional: no night sweats, no significant weight gain, no significant weight loss, no exercise intolerance, fever Eyes: Eyes: no vision change ENMT: Ears: no difficulty hearing, no ear pain. Mouth/Throat: sore throat Cardiovascular: Cardiovascular: no chest pain, no shortness of breath when walking, no palpitations, no lightheadedness, no SOB Respiratory: Respiratory: no wheezing, no shortness of breath, cough Gastrointestinal: Gastrointestinal: no abdominal pain, no nausea, no vomiting, no constipation, normal appetite, no diarrhea Genitourinary: Genitourinary: no difficulty urinating, no increased frequency Musculoskeletal: Musculoskeletal: no muscle weakness, no arthralgias/joint pain Integumentary: Skin: no rashes, no laceration Neurologic: Neurologic: no weakness, no numbness, no dizziness Endocrine: Endocrine: fatigue Allergic/Immunologic: Allergy/Immunologic: runny nose Extremities: Extremities: no edema, no ulcers Physical Exam Upper Respiratory Infection Exam Comprehensive, Upper Respiratory Infection Exam Reported By: Patient Head: Sinuses no tenderness Ears: Right External auditory canal normal appearance, no erythema. Left External auditory canal normal appearance, no erythema. Right Tympanic membrane dull, bulging. Left Tympanic membrane: dull, bulging Nose: Nasal Skin: no lesion, no lacerations. Nasal Mucosa normal, pink and moist Oral Cavity/Mouth: Oral Mucosa: normal, moist, no lesions. Posterior pharynx: lymphoid hyperplasia (cobblestoning) Lymph Nodes: Cervical no palpable lymph node enlargement Neck: Neck symmetrical, trachea midline Lungs: Respiratory effort unlabored. Auscultation breath sounds normal, no wheezing, no rales / crackles, no rhonchi Cardiovascular System: Auscultation regular rate and rhythm, no murmur, no rubs, no gallops. Observation/Palpation of peripheral vascular system no edema. Heart Sounds normal s1
--- OUTSIDE RECORDS SUMMARY | 2019-06-05 10:43 | XMS REPORT | Encounter Summary ---
Author Organization Unknown Address [address] [place] [address] Phone [phone] Care Team Providers Care Dental Technician Metal Name Role Phone Dr. Jonathan Jarquin 3 [phone] Jonathan Jarquin Jr, MD 3 [phone] Jose Robbins MD 111 [phone] Reason for Visit Advance Care Plan; AW [...] release 24 hr hydrochlorothiazide 25 mg tablet valsartan 320 mg tablet 13. Hypothyroidism TSH, serum or [...] your paperwork for your medical power of employee benefits attorney and advanced directives. Be sure that the [...] 04/02/2019 [facility] HbA1C (Hemoglobin a1C), Blood 04/02/2019 [facility] Microalbumin/creatinine, Mass Ratio, Urine 04/02/2019 [facility] CMP, Serum or Plasma 04/02/2019 [facility] CBC W/ Auto Diff 04/02/2019 [facility] Lipid Panel, Serum 04/02/2019 [facility] TSH, Serum or Plasma 04/02/2019 [facility] T4, Free, Serum 04/02/2019 [facility] T3, Free, Serum or Plasma 04/02/2019 [facility] Urinalysis, Dipstick 04/02/2019 [facility] Referral Diabetic [...] day by miscell. route for 90 days. [employer] Ultra Blue Test Strip Take 1 strip twice a day by miscell. route. tamsulosin 0.4 mg capsule Take 2 capsules every day by oral route. valsartan 320 mg tablet Take 1 tablet every day by oral route for 90 days. Medications Administered None recorded. Vitals Height Weight BMI Blood Pressure 6 ft 2 in 222 lbs 28.5 kg/m2 (1) 152/76 mm[Hg] (2) 132/64 mm[Hg] Results Lab Results Date Name Specimen Result Interpretation Description Value Range Status Address 04/02/2019 Electrocardiogram Rate & Rhythm sinus regular [facility]: [address] [address], [place] Qrs [facility]: [address] [address], [place] Interval [facility] [address] [address], [place] Q[place] Duration [facility]: [address] [address], [place] QT Interval [facility]: [address] [address], [place] Allergies Code Code System Name Reaction Severity [...] Information not available 04/02/2019 Electrocardiogram [place] [address] [facility] [address] [place] [address] (Work Place) 04/02/2019 US, Echocardiogram, Transthoracic, Complete, W/ Color Flow [place] [address] [facility] [address] [place] [address] (Work Place) Vaccine List Vaccine [...] Pre-surgery Evaluation Jonathan Jarquin Jr, MD: [address] [facility], [facility] [address], [place] [address], Ph. History of Present Illness Diabetes F/U [...]
[2019-06-05 13:10] VITALS: BP 142/67
== END | disposition home or self-care (01) ==
LOC: OR 10:38
PROVIDERS: ATTEND Internal Medicine Gastroenterology
DX: Z09 Encounter for follow-up examination after completed treatment for conditions other than malignant neoplasm (principal); D12.2 Benign neoplasm of ascending colon; D12.3 Benign neoplasm of transverse colon; K64.8 Other hemorrhoids; C61 Malignant neoplasm of prostate; E78.5 Hyperlipidemia, unspecified; E11.9 Type 2 diabetes mellitus without complications; I10 Essential (primary) hypertension; E03.9 Hypothyroidism, unspecified; Z01.810 Encounter for preprocedural cardiovascular examination; Z01.812 Encounter for preprocedural laboratory examination; Z79.84 Long term (current) use of oral hypoglycemic drugs; Z79.82 Long term (current) use of aspirin; Z79.4 Long term (current) use of insulin; Z90.49 Acquired absence of other specified parts of digestive tract; Z98.0 Intestinal bypass and anastomosis status
CPT/HCPCS: 36415; 45384; 85025; 93005; J2250; J2704; J3010; 45378

== ENCOUNTER → 2024-04-24 | Day surgery (SDC) | payer MEDICARE ==
[2024-04-20 15:30] LABS: BASOPHILS % 0.7 % (0.0-1.0); EOSINOPHILS # (AUTO) 0.1 (0.0-0.4); EOSINOPHILS % 1.5 % (0.0-6.0); HEMATOCRIT 35.2 % (38.2-49.6); HEMOGLOBIN 10.9 g/dL (14.0-18.0); LYMPHOCYTES # (AUTO) 2.1 (1.0-3.2); MEAN CORPUSCULAR HEMOGLOBIN 29.4 pg (28-32); MEAN CORPUSCULAR VOLUME 94.9 fL (81-99); MONOCYTES # (AUTO) 0.6 (0.2-0.8); MONOCYTES % 9.2 % (4.4-11.3); NEUTROPHILS # (AUTO) 3.3 (2.1-6.9); NEUTROPHILS % 54.1 % (38.7-80.0); PLATELET COUNT 170 x10e3/uL (140-360); RED BLOOD COUNT 3.71 x10e6/uL (4.3-5.7); RED CELL DISTRIBUTION WIDTH 13.1 % (11.7-14.4); WHITE BLOOD COUNT 6.11 x10e3/uL (4.8-10.8)
[~2024-04-24] MED LIST changes: +DONEPEZIL HCL5 MG PO; +EPHEDRINE SULFATE INJ 50 MG/ML VIAL ONE; +FISH OIL 1,0001 EAC7 PO; +GLYCOPYRROLATE INJ 0.2 MG/ML VIAL ONE; +LIDOCAINE HCL 2% LOCAL INJ 5 ML SDV VIAL INJ ONE; +MODAFINIL100 MG PO; +PROPOFOL IV EMULSION 10 MG/ML 20 ML VIAL ONE; -PROPOFOL IV EMULSION 10 MG/ML 50 ML VIAL ONE; +TADALAFIL20 M1 PO; +TRESIBA100 UNIT/1 SQ; +VIAGRA100 MG PO
[2024-04-24] MEDS: LACTATED RINGER'S 1,000 ML ONE (06:31)
[2024-04-24 09:09] VITALS: TEMP 97.1
[2024-04-24 09:30] VITALS: BP 134/79; PULSE 81; RESP 18; O2SAT 99
== END | disposition home or self-care (01) ==
LOC: OR 05:45
PROVIDERS: ATTEND Internal Medicine Gastroenterology
DX: K29.50 Unspecified chronic gastritis without bleeding (principal); D12.2 Benign neoplasm of ascending colon; D12.3 Benign neoplasm of transverse colon; K31.7 Polyp of stomach and duodenum; K44.9 Diaphragmatic hernia without obstruction or gangrene; Z98.0 Intestinal bypass and anastomosis status; K64.8 Other hemorrhoids; D64.9 Anemia, unspecified; G47.33 Obstructive sleep apnea (adult) (pediatric); E11.9 Type 2 diabetes mellitus without complications; I10 Essential (primary) hypertension; E78.5 Hyperlipidemia, unspecified; I49.9 Cardiac arrhythmia, unspecified; E03.9 Hypothyroidism, unspecified; Z01.810 Encounter for preprocedural cardiovascular examination; Z01.812 Encounter for preprocedural laboratory examination; Z79.4 Long term (current) use of insulin; Z79.84 Long term (current) use of oral hypoglycemic drugs; Z79.899 Other long term (current) drug therapy; Z68.31 Body mass index [BMI] 31.0-31.9, adult; Z85.46 Personal history of malignant neoplasm of prostate; Z92.3 Personal history of irradiation
CPT/HCPCS: 36415; 43239; 45384; 45385; 85025; 88305; 88342; 93005; J2003; J2250; J2704; J3010; J7121; 45378